=== PATIENT | male | born 1945 | race Caucasian/White ===

== ENCOUNTER 2022-12-14 13:00 | Emergency (ER) | payer MEDICARE, SELFPAY ==
[2022-12-14 13:01] VITALS: BP 120/56; PULSE 56; RESP 17; TEMP 36.6; O2SAT 97; BMI 29.7
--- NOTE | 2022-12-14 13:52 | HMH.EDGENADL ---
Discharge Plan Disposition Patient Disposition: Home, Self-Care Prescriptions Prescriptions: New doxycycline hyclate 100 mg capsule 100 mg PO BID 7 Days Qty: 14 0RF prednisone 50 mg tablet 50 mg PO DAILY 5 Days Qty: 5 0RF Rx Instructions: Please begin 1 day after ED visit albuterol sulfate 90 mcg/actuation HFA aerosol inhaler 4 inh inhalation Q4H PRN (Reason: shortness of breath or wheezing) Qty: 8.5 0RF Rx Instructions: 4 puffs every 4 hours for 48 hours then as needed for shortness of breath or wheezing following Referrals Follow up/Referrals: Gennaro Salamanca [Primary Care Provider] - See instructions Activity Restrictions/Add. Instructions Additional Instructions/Restrictions: Your symptoms today are consistent with a COPD exacerbation please take your steroid your inhaler and antibiotics as discussed. Please discontinue your Levaquin. Please return to the emergency department with any worsening symptoms and follow-up with primary care doctor within 1 week or as needed Clinical Impressions Clinical Impression: Acute exacerbation of chronic obstructive pulmonary disease Discharge ED Provider: Thelma Landon General Adult [facility] General Chief complaint: Upper Respiratory Infection Stated complaint: soa, weakness Time Seen by Provider: 12/14/22 13:52 Mode of Arrival: Ambulatory Limitations: No Limitations Description of Symptoms (Recalled from ER Triage Doc. by RN): pt to ED with an upper respiratory infection x 2 weeks that has not improved. pt reports lethargy, congestion and cough and has completed a zpack and been levaquin x 5 days. pt reports no relief and being more run down . pt denies any chest pain or SOB at this time but would like to rule out pneumonia History of Present Illness HPI narrative: Patient is a 77-year-old male with a known history of COPD presents with 2 weeks of worsening shortness of breath productive sputum cough generalized fatigue and wheezing. No history of heart failure no lower extremity edema no PND or orthopnea. Patient denies any history of DVT or PTE no unilateral leg swelling no recent immobilizations or hemoptysis. Patient has been on azithromycin recently transition to Levaquin has not been on any steroids has been using his breathing treatments at home with some improvement Related Data Previous Rx's Medication Instructions Recorded albuterol sulfate 90 mcg/actuation 4 inh inhalation Q4H PRN shortness 12/14/22 aerosol inhaler of breath or wheezing #8.5 grams doxycycline hyclate 100 mg capsule 100 mg PO BID 7 days #14 caps 12/14/22 prednisone 50 mg tablet 50 mg PO DAILY 5 days #5 tabs 12/14/22 Allergies Allergy/AdvReac Type Severity Reaction Status Date / Time No Known Allergies Allergy Verified 12/14/22 13:43 [facility] Disclaimer: The information contained in this section may have been updated after the patient was seen, as this information can be updated by other users. Social History Smoking Status: Never smoker alcohol intake: never current occupational status: other Travel in the last 8 weeks: None ROS Obtained: Yes All systems reviewed & no additional complaints except as documented Physical Exam General General appearance: alert Respiratory Respiratory exam: Present other (Diffuse end expiratory wheezing with poor air movement prolonged expiratory phase nonfocal in nature) Cardiovascular Cardiovascular exam: Present regular rate; Absent tachycardia Neurological Exam Neurological exam: Present alert Medical Decision Making Kavon Inquiry Pt receiving controlled substance: No Vital Signs: 12/14/22 13:01 12/14/22 15:00 Temperature 97.9 F Temperature Source Oral Pulse Rate 55 L Pulse Rate [Left Radial] 56 L Respiratory Rate 17 Blood Pressure 128/63 Blood Pressure [Right Arm] 120/56 L Blood Pressure Mean 102 Blood Pressure Mean [Right Arm] 77 Blood Pressure Source [Right Arm] Automatic Cuff
--- NOTE | 2022-12-14 13:53 | XR_ITS ---
FINAL REPORT CLINICAL HISTORY: cough and congestion FINDINGS: TWO-VIEW CHEST The heart size is normal. The mediastinum is normal. There are mild chronic changes at the bases. There is no pneumothorax. IMPRESSION: No acute cardiopulmonary process. Reviewed, Interpreted and Dictated by Wiliam Hilario MD Transcribed by Marysol Rod Authenticated and [facility]
[2022-12-14 14:08] LABS: Basophils # 0.1 K/mm3 (0-0.2); Basophils % 0.8 % (0.1-2.0); Eosinophils # 0.5 K/mm3 (0.0-0.4); Eosinophils % 5.8 % (0.1-12.0); Hematocrit 47.7 % (42.0-52.0); Hemoglobin 15.1 g/dL (14.1-18.0); Lymphocytes # 1.5 K/mm3 (0.7-4.5); Lymphocytes % 19.2 % (10-50); Mean Corpuscular HGB Conc 31.7 g/dL (31.8-35.4); Mean Corpuscular Hemoglobin 29.9 pg (27.0-31.2); Mean Corpuscular Volume 94.3 fl (80-94); Mean Platelet Volume 9.4 fl (7.4-10.4); Monocytes # 0.5 K/mm3 (0.1-1.0); Monocytes % 6.7 % (1.7-9.3); Neutrophils # 5.2 K/mm3 (1.8-7.8); Neutrophils % 67.6 % (37.0-80.0); Platelet Count 301 K/mm3 (142-424); Red Blood Count 5.06 M/mm3 (4.60-6.20); Red Cell Distribution Width 14.1 % (11.5-17.5); White Blood Count 7.7 K/mm3 (4.8-10.8)
[2022-12-14 14:09] LABS: Alanine Aminotransferase 29 U/L (12-78); Albumin Level 4.2 g/dl (3.5-5.0); Albumin/Globulin Ratio 1.4 (1.1-1.8); Alkaline Phosphatase 67 U/L (38-126); Anion Gap 12.2 mEq/L (5-15); Aspartate Amino Transferase 43 U/L (17-59); Bilirubin,Total 0.9 mg/dl (0.2-1.3); Blood Urea Nitrogen 21 mg/dl (9-20); Calcium 8.7 mg/dl (8.4-10.2); Carbon Dioxide 33 mmol/L (22.0-30.0); Chloride 99 mmol/L (98-107); Creatinine Clearance Estimated 39 mL/min (50-200); Estimated Glomerular Filt Rate 34 ml/min (>60); GFR (African American) 42 ML/MIN (>60); Glucose 94 mg/dl (74-100); Potassium 4.2 mmoL/L (3.5-5.1); Sodium 140 mmol/L (136-145); Total Protein,Serum 7.2 g/dl (6.3-8.2)
[2022-12-14 14:34] LABS: Troponin I < 0.01 ng/ml (0.00-0.034)
--- NOTE | 2022-12-14 14:36 | PC.NURSE ---
pt receiving breathing treatment at this time
[2022-12-14 15:00] VITALS: BP 128/63; PULSE 55; O2SAT 93
[2022-12-14 15:51] VITALS: BP 149/71; PULSE 56; RESP 17; TEMP 36.6; O2SAT 99
== END 2022-12-14 15:52 | disposition home or self-care (01) ==
PROVIDERS: Emergency Provider Student in an Organized Health Care Education/Training Program; PCP Family Medicine
DX: J44.1 Chronic obstructive pulmonary disease with (acute) exacerbation (principal); R06.02 Shortness of breath; R53.83 Other fatigue
CPT/HCPCS: 71046; 80053; 84484; 85025; 99284; 99285

== ENCOUNTER 2024-02-29 17:06 | Emergency (ER) | payer MEDICARE, SELFPAY ==
[2024-02-29 17:15] VITALS: BP 196/88; PULSE 55; O2SAT 97
[2024-02-29 17:23] VITALS: BP 196/88; PULSE 64; RESP 20; TEMP 36.6; O2SAT 100; BMI 28.1
--- NOTE | 2024-02-29 17:37 | ED_ITS ---
Discharge Plan Disposition Patient Disposition: Home, Self-Care Chief Complaint: Recheck/Abnormal Lab/Rx Prescriptions Prescriptions: No Action doxycycline hyclate 100 mg capsule 100 mg PO BID 7 Days Qty: 14 0RF prednisone 50 mg tablet 50 mg PO DAILY 5 Days Qty: 5 0RF Rx Instructions: Please begin 1 day after ED visit albuterol sulfate 90 mcg/actuation HFA aerosol inhaler 4 inh inhalation Q4H PRN (Reason: shortness of breath or wheezing) Qty: 8.5 0RF Rx Instructions: 4 puffs every 4 hours for 48 hours then as needed for shortness of breath or wheezing following Referrals Follow up/Referrals: Gennaro Salamanca [Primary Care Provider] - See instructions Autumn Bhat APRN [Staff Physician] - See instructions Jacoby Vega MD [Staff Physician] - See instructions Activity Restrictions/Add. Instructions Additional Instructions/Restrictions: Call your family doctor to establish care for this visit to the emergency department and schedule follow-up within 48 hours to ensure improvement. If you have any worsening of your condition or any other concerning signs or symptoms, return to the emergency department or your primary care doctor for further evaluation. Follow-up with Dr. Xie for colonoscopy and further management. Autumn Bhat is the wool hat forming machine tender here you can call and schedule appoint with him as well. Clinical Impressions Clinical Impression: Rectal bleed, Pain in rectum, Diarrhea Discharge ED Provider: Ra Ball General Adult HPI General Chief complaint: Recheck/Abnormal Lab/Rx Stated complaint: Rectal bleed X4-5 days Time Seen by Provider: 02/29/24 17:13 Mode of Arrival: Ambulatory Source of Information: Patient and Spouse Limitations: No Limitations Description of Symptoms (Recalled from ER Triage Doc. by RN): pt reports red rectal bleeding since 02/23. pt states its minimal bleeding that is evident on the toilet paper when he wipes. pt has a hx of hemmorhoids and colon cancer that was surgically removed. pt also reports his abd has been feeling different over the last 3 months. pt reports he has diarrhea, gas and cramps more than normal. pt reports his last cologaurd was last year and it was negative. History of Present Illness HPI narrative: Please note that above description of symptoms, in this electronic medical record under categorization of recalled from ER triage doctor by RN are reflective of an initial nursing assessment, however, is not reflective of my full history and physical exam that was personally taken and clarified. Consequentially, this preceding description of symptoms, which may include the patient's categorized chief complaint in the EMR, do not reflect my personal clinical impression, and the ultimate description of history of present illness and patient stated complaints should be deferred to this section of the note. Unless stated otherwise or congruent with this section of the note, additional signs, symptoms, or incongruence should be interpreted as inaccurate with my clinical impression. Related Data Previous Rx's Medication Instructions Recorded albuterol sulfate 90 mcg/actuation 4 inh inhalation Q4H PRN shortness 12/14/22 aerosol inhaler of breath or wheezing #8.5 grams doxycycline hyclate 100 mg capsule 100 mg PO BID 7 days #14 caps 12/14/22 prednisone 50 mg tablet 50 mg PO DAILY 5 days #5 tabs 12/14/22 Allergies Allergy/AdvReac Type Severity Reaction Status Date / Time No Known Allergies Allergy Verified 02/29/24 17:31 [facility] Disclaimer: The information contained in this section may have been updated after the patient was seen, as this information can be updated by other users. Social History (Updated 12/14/22 @ 15:25 by Thelma Landon MD) Smoking Status: Never smoker alcohol intake: never current occupational status: other Travel in the last 8 weeks: None ROS Obtained: Yes All systems reviewed & no additional complaints except as documented Physical Exam General General appearance: alert and in no apparent distress Head Head exam: atraumatic and normocephalic Eye Eye exam: Present normal appearance, PERRL and EOMI ENT ENT exam: Present mucous membranes moist Neck Neck exam: Present normal inspection, full ROM and trachea midline Respiratory Respiratory exam: Absent respiratory distress, wheezes, stridor, accessory muscle use or prolonged expiratory phase Cardiovascular Cardiovascular exam: Present regular rate and normal rhythm Abdominal Exam Abdominal exam: Present soft; Absent distention, tenderness, guarding, rebound or rigidity Extremities Exam Extremities exam: Absent edema Neurological Exam Neurological exam: Present alert, oriented X3, CN II-XII intact and normal gait; Absent motor sensory deficit Skin Skin exam: Present warm and dry; Absent diaphoresis or erythema Medical Decision Making Medical Records Medical records reviewed: Yes I reviewed the patient's medical records. Kavon Inquiry Pt receiving controlled substance: No Kavon was queried for this patient: No Vital Signs: 02/29/24 17:15 02/29/24 17:23 02/29/24 19:00 Temperature 97.8 F Temperature Source Oral Pulse Rate 55 L Pulse Rate [Left] 64 Respiratory Rate 20 Blood Pressure 196/88 H 196/88 H Blood Pressure [Right Arm] 196/88 H Blood Pressure Mean [Right Arm] 124 Blood Pressure Source [Right Arm] Automatic Cuff Blood Pressure Position [Right Arm] Sitting 02 Sat by Pulse Oximetry 97 100 Oxygen Delivery Method Room Air Lab Data Lab Results 02/29/24 17:30: WBC 8.6, RBC 4.76, Hgb 14.8, Hct 47.3, MCV 99.4 H, MCH 31.1, M CHC 31.3 L, RDW 15.3, Plt Count 229, MPV 8.8, Neut % (Auto) 72.7, Lymph % (Auto) 17.4, [place] % (Auto) 6.2, Eos % (Auto) 2.8, Baso % (Auto) 1.0, Neut # (Auto) 6.2, Lymph # (Auto) 1.5, [place] # (Auto) 0.5, Eos # (Auto) 0.2, Baso # (Auto) 0.1, PT 10.9, INR 1.01, APTT 26.1, Sodium 141, Potassium 4.2, Chloride 102, Carbon Dioxide 32 H, Anion Gap 11.2, BUN 25 H, Creatinine 1.80 H, Estimated Creat Clear 38, Estimated GFR 37 L, Est GFR ( Amer) 44 L, Glucose 133 H, Calcium 10.4 H, Total Bilirubin 0.9, AST 37, ALT 35, Alkaline Phosphatase 62, Total Protein 7.3, Albumin 4.2, Globulin 3.1, Albumin/Globulin Ratio 1.4 02/29/24 17:30 02/29/24 17:30 Orders (Tests/Meds): ED MEDICATIONS Discontinued Medications Generic Name Dose Route Start Last Admin Trade Name Freq PRN Reason Stop Dose Admin Lactated Ringer's 1,000 mls @ 999 mls/hr 02/29/24 18:17 02/29/24 19:08 Lactated Ringer's 1000 Ml Bag IV 02/29/24 19:17 999 mls/hr .Q1H1M ONE Administration Iopamidol 75 ml 02/29/24 18:59 02/29/24 19:00 Iopamidol-370 (76%);100ml Bottle IV 02/29/24 19:00 75 ml ONCE ONE Administration Sodium Chloride 10 ml 02/29/24 18:59 02/29/24 19:00 Sodium Chloride 0.9% 10ml Syr (Rad Only) IV 02/29/24 19:00 10 ml ONCE ONE Administration ORDERS Category Date Time Status CT abdomen pelvis w con Stat Cat Scan 02/29/24 17:56 Completed CBC w/Auto Diff [Complete Blood Count Auto Diff] Stat Lab 02/29/24 17:30 Completed CMP [Comprehensive Metabolic Panel] Stat Lab 02/29/24 17:30 Completed PT INR [Prothrombin Time INR] Stat Lab 02/29/24 17:30 Completed PTT [Activated Partial Thrombo Time] Stat Lab 02/29/24 17:30 Completed Medical Decision Narrative: 78-year-old male history of hypertension, hyperlipidemia, COPD not on home oxygen, hemorrhoids, colon cancer status postsurgical resection presenting with rectal bleeding. Patient states that he has had diarrhea on and off for couple months. Over the past 4 to 5 days, started having blood in his stool. Does not feel the toilet, not necessarily on his stool, is only present when he wipes. Some pain when having bowel movements. No fevers or chills, night sweats, unintended weight loss, decreased p.o. intake, vomiting, abdominal pain, or any other concerns. Does not take anticoagulation. History was obtained via conversation with patient and . On arrival, patient hemodynamically stable, alert, oriented x4, appropriate, GCS 15, moving all extremities spontaneously, pupils equal and reactive to light. Full physical exam performed and significant for very well-appearing male who is in no acute distress. His abdomen is soft, nondistended, nontender, no overlying skin changes. Patient hypertensive, nontachycardic, afebrile. Rectal exam tender, but no palpable hemorrhoids. Anal fissure present. Differential includes hemorrhoid, fissure, malignancy, AVM, diverticular bleed, proctitis, among others. Patient was given food bolus for symptomatic management and correction of underlying abnormalities. Workup independently interpreted and significant for stable hemoglobin normal chemistry other than UMBERTO on CKD with creatinine 1.8. LFTs within normal limits. CT of the abdomen pelvis independently interpreted and patient has simple cyst in his liver, but no intra-abdominal pathology or perirectal pathology. See radiology read for full review of final results. On reevaluation, patient resting comfortably in bed. Given patient presentation, workup, history, this most likely represents perianal fissure in the setting of frequent diarrhea. Because patient at baseline without signs or symptoms of clinical decompensation, deemed appropriate for discharge. Results were relayed to patient who voiced understanding and were agreeable to outpatient management and follow up. I discussed my clinical impression with patient and answered all questions. At this time, the evidence for any other entities in the differential is insufficient to warrant any further testing or ED observation. This was explained as well. Advisory was given that persistent or worsening symptoms require further evaluation. I confirmed the understanding of this discussion. Internist Medical Doctor Md disclaimer Much of this encounter note is an electronic medicaid plan compliance director spoken language to printed text. Electronic medicaid plan compliance director of the spoken language may permit errors. Although I have reviewed the note, some errors may still exist. Critical Care Critical Care Time Critical Care Time: No
[2024-02-29 17:45] LABS: Basophils # 0.1 K/mm3 (0-0.2); Eosinophils # 0.2 K/mm3 (0.0-0.4); Eosinophils % 2.8 % (0.1-12.0); Hematocrit 47.3 % (42.0-52.0); Hemoglobin 14.8 g/dL (14.1-18.0); Lymphocytes # 1.5 K/mm3 (0.7-4.5); Lymphocytes % 17.4 % (10-50); Mean Corpuscular HGB Conc 31.3 g/dL (31.8-35.4); Mean Corpuscular Hemoglobin 31.1 pg (27.0-31.2); Mean Corpuscular Volume 99.4 fl (80-94); Mean Platelet Volume 8.8 fl (7.4-10.4); Monocytes # 0.5 K/mm3 (0.1-1.0); Monocytes % 6.2 % (1.7-9.3); Neutrophils # 6.2 K/mm3 (1.8-7.8); Neutrophils % 72.7 % (37.0-80.0); Platelet Count 229 K/mm3 (142-424); Red Blood Count 4.76 M/mm3 (4.60-6.20); Red Cell Distribution Width 15.3 % (11.5-17.5); White Blood Count 8.6 K/mm3 (4.8-10.8)
[2024-02-29 17:52] LABS: Activated Partial Thrombo Time 26.1 seconds (22.8-30.6); INR 1.01 (0.9-1.1); Prothrombin Time 10.9 seconds (10.1-12.5)
--- NOTE | 2024-02-29 17:56 | CT_ITS ---
PROCEDURE INFORMATION: Exam: CT Abdomen And Pelvis With Contrast Exam date and time: 02/29/24 06:56 PM Age: 78 years old Clinical indication: Other: Rectal bleeding; Additional info: Scant rectal bleeding, history of colon CA TECHNIQUE: Imaging protocol: Computed tomography of the abdomen and pelvis with contrast. Radiation optimization: All CT scans at this facility use at least one of these dose optimization techniques: automated exposure control; mA and/or kV adjustment per patient size (includes targeted exams where dose is matched to clinical indication); or iterative reconstruction. Contrast material: ISOVUE; Contrast volume: 75 ml; Contrast route: IV; COMPARISON: CR XR CHEST 2V 12/14/22 01:53 PM FINDINGS: Tubes, catheters and devices: None noted. Lungs: Lung bases appear clear. Heart: No significant coronary calcifications. No cardiomegaly. No significant pericardial effusion. Liver: Normal. No mass. Gallbladder and bile ducts: Normal. No calcified stones. No ductal dilation. Pancreas: Normal. No ductal dilation. Spleen: Normal. No splenomegaly. Adrenal glands: Normal. No mass. Kidneys and ureters: Normal. No hydronephrosis. Stomach and bowel: Unremarkable. No obstruction. No mucosal thickening. Appendix: No evidence of appendicitis. Intraperitoneal space: Unremarkable. No free air. No significant fluid collection. Retroperitoneal space: No significant retroperitoneal inflammatory changes are noted. Vasculature: Unremarkable. No abdominal aortic aneurysm. Lymph nodes: Unremarkable. No enlarged lymph nodes. Urinary bladder: Unremarkable as visualized. Reproductive: Unremarkable as visualized. Bones/joints: Unremarkable. No acute fracture. Soft tissues: Anterior midline hernia contains omentum and transverse colon. No obstruction. IMPRESSION: 1. No acute findings. 2. Previous surgical changes in the colon.
[2024-02-29 18:09] LABS: Chloride 102 mmol/L (98-107); Sodium 141 mmol/L (136-145)
[2024-02-29 18:10] LABS: Potassium 4.2 mmoL/L (3.5-5.1)
[2024-02-29 18:12] LABS: Alanine Aminotransferase 35 U/L (12-78); Albumin Level 4.2 g/dl (3.5-5.0); Alkaline Phosphatase 62 U/L (38-126); Aspartate Amino Transferase 37 U/L (17-59); Bilirubin,Total 0.9 mg/dl (0.2-1.3); Blood Urea Nitrogen 25 mg/dl (9-20); Creatinine Clearance Estimated 38 mL/min (50-200); Estimated Glomerular Filt Rate 37 ml/min (>60); GFR (African American) 44 ML/MIN (>60)
[2024-02-29 18:13] LABS: Albumin/Globulin Ratio 1.4 (1.1-1.8); Anion Gap 11.2 mEq/L (5-15); Calcium 10.4 mg/dl (8.4-10.2); Carbon Dioxide 32 mmol/L (22.0-30.0); Globulin 3.1 g/dL (1.3-3.2); Glucose 133 mg/dl (74-100); Total Protein,Serum 7.3 g/dl (6.3-8.2)
[2024-02-29 19:00] VITALS: BP 196/88
[2024-02-29] MEDS: IOPAMIDOL-370 (76%);100ML BOTTLE 75 ML IV (19:00)
[2024-02-29] MEDS: SODIUM CHLORIDE 0.9% 10ML SYR (RAD ONLY) 10 ML IV (19:00)
[2024-02-29] MEDS: LACTATED RINGERS 1000ML 1,000 ML 999 ML IV (19:08)
--- NOTE | 2024-02-29 20:01 | PC.NURSE ---
I spoke with MALLORY to page the radiologist that read the pts CT. They will return the call when the radiologist is available.
--- NOTE | 2024-02-29 20:03 | PC.NURSE ---
I rounded on the pt. no new complaints at this time. I informed him and his that we are waiting on a return call from the radiologist.
[2024-02-29 20:49] VITALS: BP 164/92; PULSE 73; RESP 16; TEMP 36.6
== END 2024-02-29 20:50 | disposition home or self-care (01) ==
PROVIDERS: Emergency Provider Emergency Medicine; PCP Family Medicine
DX: K62.5 Hemorrhage of anus and rectum (principal); K62.89 Other specified diseases of anus and rectum; R19.7 Diarrhea, unspecified; I10 Essential (primary) hypertension; E78.5 Hyperlipidemia, unspecified; J44.9 Chronic obstructive pulmonary disease, unspecified; Z85.038 Personal history of other malignant neoplasm of large intestine; Z90.49 Acquired absence of other specified parts of digestive tract; K60.2 Anal fissure, unspecified
CPT/HCPCS: 74177; 80053; 85025; 85610; 85730; 96360; 99284; J7120; Q9967

== ENCOUNTER 2024-05-06 12:28 | Emergency (ER) | payer MEDICARE, SELFPAY ==
[2024-05-06] VITALS (8 sets, daily range): BP systolic 129–183; BP diastolic 79–94; PULSE 55–67; RESP 16–20; TEMP 36.6–36.7; O2SAT 96–98; BMI 28.1
--- NOTE | 2024-05-06 12:35 | ECG_ITS ---
APPROVED REPORT Exam: Resting ECG HR:66 bpm ECG Measurements Heart Rate 66 AXES QRSd 87 QRS 85 QT 376 T 82 QTc 389 Conclusion ATRIAL FIBRILLATION WITH ABERRANT CONDUCTION OR VENTRICULAR PREMATURE COMPLEXES ABNORMAL RHYTHM ECG Electronically signed by : NADINE FERNANDEZ, 05/07/2024 07:09:02
--- NOTE | 2024-05-06 12:46 | XR_ITS ---
FINAL REPORT CLINICAL HISTORY: SHORTNESS OF BREATH, CHEST PAIN COMPARISON: 12/14/2022 FINDINGS: TWO-VIEW CHEST The heart size is normal. The mediastinum is normal. There are worsening bibasilar opacities, may represent atelectasis or pneumonia. There is no pneumothorax. IMPRESSION: Worsening bibasilar atelectasis versus pneumonia. Reviewed, Interpreted and Dictated by Vivek Garnica III, MD Transcribed by Marysol Rod Authenticated and [facility]
[2024-05-06 12:53] LABS: Basophils % 0.6 % (0.1-2.0); Eosinophils # 0.3 K/mm3 (0.0-0.4); Eosinophils % 4.8 % (0.1-12.0); Hematocrit 42.6 % (42.0-52.0); Hemoglobin 13.5 g/dL (14.1-18.0); Lymphocytes # 1.1 K/mm3 (0.7-4.5); Lymphocytes % 17.1 % (10-50); Mean Corpuscular HGB Conc 31.6 g/dL (31.8-35.4); Mean Corpuscular Hemoglobin 31.5 pg (27.0-31.2); Mean Corpuscular Volume 99.4 fl (80-94); Mean Platelet Volume 9.4 fl (7.4-10.4); Monocytes # 0.4 K/mm3 (0.1-1.0); Monocytes % 6.4 % (1.7-9.3); Neutrophils # 4.7 K/mm3 (1.8-7.8); Neutrophils % 71.1 % (37.0-80.0); Platelet Count 249 K/mm3 (142-424); Red Blood Count 4.29 M/mm3 (4.60-6.20); White Blood Count 6.7 K/mm3 (4.8-10.8)
[2024-05-06 12:54] LABS: Albumin Level 3.6 g/dl (3.5-5.0); Chloride 103 mmol/L (98-107); Potassium 3.9 mmoL/L (3.5-5.1); Sodium 137 mmol/L (136-145)
--- NOTE | 2024-05-06 12:54 | CT_ITS ---
FINAL REPORT CLINICAL HISTORY: abd pain, distension, hx ca COMPARISON: 02/29/2024 FINDINGS: CT OF THE ABDOMEN AND PELVIS WITH CONTRAST Axial CT images of the abdomen and pelvis were obtained after the administration of IV contrast. Coronal and sagittal reformatted images were also obtained and reviewed.This study was performed with techniques to keep radiation doses as low as reasonably achievable (ALARA). Individualized dose reduction techniques using automated exposure control or adjustment of mA and/or kV according to the patient's size were employed. Abdomen: Small to moderate size bilateral pleural effusions are present. Bibasilar atelectasis is noted in the lower lobes.. The heart is normal in size. Multiple low-attenuation foci are noted in the liver, favor cysts, however continued follow-up is recommended. The spleen is unremarkable. There are bilateral adrenal nodules noted, stable when compared to the prior CT of February. Favor adenomas, but continued follow-up is recommended. The pancreas has an unremarkable appearance. The kidneys are normal, without evidence of mass or hydronephrosis. There are 3 supraumbilical abdominal wall hernias present, containing fat. One of these hernias contains a nonobstructing loop of transverse colon. The aorta is normal in caliber. There is no free fluid or adenopathy. No mass or abnormal fluid collection is seen. Pelvis: A presumed right colectomy has been performed. The appendix is not well-visualized. The urinary bladder wall is thickened, likely inflammatory. There is no evidence of mass or adenopathy. There is no evidence of bowel obstruction. IMPRESSION: Small to moderate bilateral pleural effusions are present. Multiple low-attenuation foci are present in the liver, favor cysts but 6-month follow-up CT with contrast is suggested for further evaluation. Bilateral adrenal nodules are present, stable since February. Once again favor CT with contrast in 6 months for further evaluation. Three supraumbilical abdominal wall hernias are present containing fat, 1 of which contains a nonobstructed loop of transverse colon. Mild bladder wall thickening is present, likely inflammatory. Reviewed, Interpreted and Dictated by Vivek Garnica III, MD Transcribed by Abimbola Santana Authenticated and [facility]
[2024-05-06 12:56] LABS: Blood Urea Nitrogen 17 mg/dl (9-20); Creatinine Clearance Estimated 34 mL/min (50-200); Estimated Glomerular Filt Rate 32 ml/min (>60); GFR (African American) 39 ML/MIN (>60)
--- NOTE | 2024-05-06 12:56 | [facility].EDCP ---
Discharge Plan Disposition Patient Disposition: Home, Self-Care Condition: Good Prescriptions Prescriptions: New furosemide 40 mg tablet 40 mg PO DAILY Qty: 30 0RF Trelegy Ellipta 100-62.5-25 mcg blister with device 1 inh inhalation DAILY Qty: 60 0RF albuterol sulfate 90 mcg/actuation HFA aerosol inhaler 2 inh inhalation Q4H PRN (Reason: shortness of breath or wheezing) Qty: 8.5 0RF No Action doxycycline hyclate 100 mg capsule 100 mg PO BID 7 Days Qty: 14 0RF prednisone 50 mg tablet 50 mg PO DAILY 5 Days Qty: 5 0RF Rx Instructions: Please begin 1 day after ED visit albuterol sulfate 90 mcg/actuation HFA aerosol inhaler 4 inh inhalation Q4H PRN (Reason: shortness of breath or wheezing) Qty: 8.5 0RF Rx Instructions: 4 puffs every 4 hours for 48 hours then as needed for shortness of breath or wheezing following Referrals Follow up/Referrals: Gennaro Salamanca [Primary Care Provider] - See instructions Manuel Carmen MD [Staff Physician] - See instructions Sivan Thacker MD [Physician] - See instructions Jessee Clifton MD [Staff Physician] - See instructions Activity Restrictions/Add. Instructions Additional Instructions/Restrictions: You were evaluated in the emergency department today. You have fluid buildup around your heart as well as on your lungs. For this, we are advising that you take furosemide 40 mg daily. Please make sure that you take that as prescribed. Make sure that you are not doubling up with your prescription that is at home. I also refilled your inhalers for you since you said that you are almost out of them. It is very important that you follow-up closely with cardiology for evaluation and management of this. I also recommend close follow-up with pulmonology given your chronic lung issues. They can help further manage your inhalers. You have incidental findings on your CT scan, which I do not feel are currently causing you any issues and I recommend outpatient follow-up for this. Please see below. We are providing you with information for pulmonology and cardiology. Please call their offices to schedule appointments in the morning. Let them know that you were seen in the ER. I recommend follow-up in the next 3 to 5 days. return to the emergency department right away for new or worsening symptoms. Small to moderate bilateral pleural effusions are present. Multiple low-attenuation foci are present in the liver, favor cysts but 6-month follow-up CT with contrast is suggested for further evaluation. Bilateral adrenal nodules are present, stable since February. Once again favor CT with contrast in 6 months for further evaluation. Three supraumbilical abdominal wall hernias are present containing fat, 1 of which contains a nonobstructed loop of transverse colon. Clinical Impressions Clinical Impression: CHF (congestive heart failure), Pericardial effusion, Pleural effusion, Liver lesion, Adrenal nodule, Abdominal hernia Instructions Patient Instructions: Heart Failure, DI for Shortness of Breath, DI for Pleural Effusion Print Language Print Language: Citizen Of [place] Discharge ED Provider: Heydi Powell HPI <Tracy Black MD - Last Filed: 05/06/24 15:26> General Chief Complaint: Shortness of Breath/Dyspnea Stated Complaint: soa Time Seen by Provider: 05/06/24 12:42 Mode of Arrival: Ambulatory Source of Information: Patient and Spouse Limitations: No Limitations Description of Symptoms (Recalled from ER Triage Doc. by RN): PT REPORTS INCREASED SHORTNESS OF BREATH THAT BECAME WORSE LAST NIGHT. REPORTS DIFFUSE CHEST PAIN AND NON-PRODUCTIVE COUGH. REPORTS INCREASED SWELLING OF BLE History of Present Illness HPI narrative: 79-year-old male presents to the ER for complaints of shortness of breath worse with exertion. Patient reports intermittent diffuse chest pain, nonproductive cough. He also has swelling in the bilateral lower extremities. He states he has a fluid pill which he does not usually take because he feels like the excessive urination causes him to have burning. Patient does report a history of cancer with previous abdominal surgeries. He states that he has had abdominal swelling and discomfort in the belly secondary to swelling. He is not having nausea, vomiting, or diarrhea. Patient and his report that he was on an antibiotic after having a cold. Reportedly it was a 20-day course of Levaquin but patient stopped taking it after 10 days. He stated he started to get worse again restarted the antibiotic which he recently completed. Related Data Previous Rx's ?Medication ?Instructions ?Recorded albuterol sulfate 90 mcg/actuation 4 inh inhalation Q4H PRN shortness 12/14/22 aerosol inhaler of breath or wheezing #8.5 grams doxycycline hyclate 100 mg capsule 100 mg PO BID 7 days #14 caps 12/14/22 prednisone 50 mg tablet 50 mg PO DAILY 5 days #5 tabs 12/14/22 albuterol sulfate 90 mcg/actuation 2 inh inhalation Q4H PRN shortness 05/06/24 aerosol inhaler of breath or wheezing #8.5 grams fluticasone fur. 100 mcg-umeclid 1 inh inhalation DAILY #60 ea 05/06/24 62.5 mcg-vilant 25 mcg inhalat.powder (Trelegy Ellipta) furosemide 40 mg tablet 40 mg PO DAILY #30 tabs 05/06/24 Allergies Allergy/AdvReac Type Severity Reaction Status Date / Time No Known Allergies Allergy Verified 02/29/24 17:31 PFSH <Tracy Black MD - Last Filed: 05/06/24 15:26> [facility] Disclaimer: The information contained in this section may have been updated after the patient was seen, as this information can be updated by other users. Social History (Updated 12/14/22 @ 15:25 by Thelma Landon MD) Smoking Status: Never smoker alcohol intake: never current occupational status: other Travel in the last 8 weeks: None <Tracy Black MD - Last Filed: 05/06/24 15:26> ROS Obtained: Yes All systems reviewed & no additional complaints except as documented Positive ROS per HPI Physical Exam <Tracy Black MD - Last Filed: 05/06/24 15:26> General General appearance: alert and in no apparent distress Head Head exam: atraumatic and normocephalic Eye Eye exam: Present PERRL and EOMI ENT ENT exam: Present mucous membranes moist Neck Neck exam: Present normal inspection and full ROM Chest Chest inspection: Present symmetric chest wall rise Respiratory Respiratory exam: Present normal lung sounds bilaterally; Absent respiratory distress, wheezes or stridor Cardiovascular Cardiovascular exam: Present normal rhythm and bradycardia Abdominal Exam Abdominal exam: Present soft, distention and tenderness (Mild diffuse); Absent guarding, rebound or rigidity Extremities Exam Extremities exam: Present full ROM and edema (2+ bilaterally) Neurological Exam Neurological exam: Present alert and oriented X3; Absent motor sensory deficit Psychiatric Psychiatric exam: Present normal affect and normal mood Skin Skin exam: Present warm and dry HEART Score <Tracy Black MD - Last Filed: 05/06/24 15:26> HEART Score HEART Score assessment performed?: Yes History (anamnesis): Slightly suspicious ECG: Non-specific disturbance Age: >65 years Risk factors: 1-2 risk factors Troponin: </= normal limit HEART Score: 4 <Heydi Powell DO - Last Filed: 05/06/24 16:55> HEART Score HEART Score: 4 Critical Care <Tracy Black MD - Last Filed: 05/06/24 15:26> Critical Care Time Critical Care Time: No Medical Decision Making <Tracy Black MD - Last Filed: 05/06/24 15:26> Medical Records Medical records reviewed: Yes I reviewed the patient's medical records. MR Comment: Patient has previously been seen in our ER for COPD exacerbation and diarrhea. Previous labs were reviewed demonstrating kidney dysfunction with creatinine 1.8, 1.9 previously. Kavon Inquiry Pt receiving controlled substance: No Vital Signs Vital Signs: 05/06/24 12:29 05/06/24 13:23 05/06/24 13:31 Temperature 97.8 F Temperature Source Oral Pulse Rate 64 62 Pulse Rate [Apical] 58 L Respiratory Rate 20 17 20 Blood Pressure 166/93 H 147/83 H Blood Pressure [Right Arm] 159/90 H Blood Pressure Mean 125 Blood Pressure Mean [Right Arm] 113 Blood Pressure Source [Right Arm] Automatic Cuff Blood Pressure Position [Right Arm] Sitting 02 Sat by Pulse Oximetry 98 98 98 Oxygen Delivery Method Room Air Room Air 05/06/24 14:30 05/06/24 15:01 05/06/24 15:30 Temperature Temperature Source Pulse Rate 55 L 62 67 Pulse Rate [Apical] Respiratory Rate 18 19 18 Blood Pressure 129/84 150/79 H 161/94 H Blood Pressure [Right Arm] Blood Pressure Mean 115 102 116 Blood Pressure Mean [Right Arm] Blood Pressure Source [Right Arm] Blood Pressure Position [Right Arm] 02 Sat by Pulse Oximetry 97 96 98 Oxygen Delivery Method 05/06/24 16:23 Temperature Temperature Source Pulse Rate 60 Pulse Rate [Apical] Respiratory Rate 16 Blood Pressure 183/83 H Blood Pressure [Right Arm] Blood Pressure Mean 150 Blood Pressure Mean [Right Arm] Blood Pressure Source [Right Arm] Blood Pressure Position [Right Arm] 02 Sat by Pulse Oximetry 98 Oxygen Delivery Method Lab Data Labs: Lab Results 05/06/24 12:36: WBC 6.7, RBC 4.29 L, Hgb 13.5 L, Hct 42.6, MCV 99.4 H, MCH 31.5 H, MCHC 31.6 L, RDW 15.0, Plt Count 249, MPV 9.4, Neut % (Auto) 71.1, Lymph % (Auto) 17.1, Humphreys % (Auto) 6.4, Eos % (Auto) 4.8, Baso % (Auto) 0.6, Neut # (Auto) 4.7, Lymph # (Auto) 1.1, Humphreys # (Auto) 0.4, Eos # (Auto) 0.3, Baso # (Auto) 0.0, PT 12.0, INR 1.08, Sodium 137, Potassium 3.9, Chloride 103, Carbon Dioxide 29, Anion Gap 8.9, BUN 17, Creatinine 2.00 H, Estimated Creat Clear 34, Estimated GFR 32 L, Est GFR ( Amer) 39 L, Glucose 163 H, Calcium 8.8, Total Bilirubin 1.1, AST 30, ALT 36, Alkaline Phosphatase 56, Troponin I 0.02, NT-Pro-B Natriuret Pep 3400 H, Total Protein 6.2 L, Albumin 3.6, Globulin 2.6, Albumin/Globulin Ratio 1.4 05/06/24 15:30: Troponin I 0.01 05/06/24 12:36 05/06/24 12:36 Response Orders (Tests/Meds): ED MEDICATIONS Generic Name Dose Route Start Last Admin Trade Name Freq PRN Reason Stop Dose Admin Sodium Chloride 10 ml 05/06/24 12:46 Sodium Chloride 0.9% 10ml Flush Syringe IV 06/05/24 12:45 NEEDED PRN Maintain IV Site Discontinued Medications Generic Name Dose Route Start Last Admin Trade Name Freq PRN Reason Stop Dose Admin Iopamidol 75 ml 05/06/24 13:21 05/06/24 13:22 Iopamidol-370 (76%);100ml Bottle IV 05/06/24 13:22 75 ml ONCE ONE Administration Sodium Chloride 10 ml 05/06/24 13:21 05/06/24 13:22 Sodium Chloride 0.9% 10ml Syr (Rad Only) IV 05/06/24 13:22 10 ml ONCE ONE Administration ORDERS Category Date Time Status CT abdomen pelvis w con Stat Cat Scan 05/06/24 12:[address] chest w con Stat Cat Scan 05/06/24 12:57 Completed XR chest 2V Stat Exams 05/06/24 12:46 Completed Complete Blood Count Auto Diff Stat Lab 05/06/24 12:36 Completed Comprehensive Metabolic Panel Stat Lab 05/06/24 12:36 Completed NT Pro Brain Natriuretic Pep. Stat Lab 05/06/24 12:36 Completed PT INR [Prothrombin Time INR] Stat Lab 05/06/24 12:36 Completed Troponin I Q3H Lab 05/06/24 15:30 Completed Troponin I Q3H Lab 05/06/24 19:00 Ordered Troponin I Stat Lab 05/06/24 12:36 Completed MDM Narrative Medical Decision Narrative: In summary, this 79-year-old male presents to the emergency department today with shortness of breath, intermittent chest pains, bilateral lower extremity swelling. On initial evaluation patient is hemodynamically stable though he is mildly bradycardic, afebrile, +2 bilateral lower extremity pitting edema, reassuring pulmonary exam, abdomen is distended but soft without rigidity, mild diffuse tenderness without rebound or guarding, nonacute abdomen. Differential diagnosis includes but is not limited to ACS, malignancy, pulmonary edema, electrolyte abnormality, medication noncompliance, ascites, liver dysfunction, kidney dysfunction. Based on these concerns, I ordered cardiac workup, CT imaging, serum labs. ECG personally interpreted demonstrates atrial fibrillation, rate 66, normal axis, normal QTc. Labs personally reviewed demonstrate no leukocytosis, mild anemia with hemoglobin 13.5, slightly decreased from previous, normal platelets, CMP notable for elevated creatinine at 2.0, though this is not significantly different from previous, BNP is elevated at 3400 consistent with findings of fluid overload on exam, initial troponin 0.02, repeat troponin pending. X-ray personally interpreted does not demonstrate acute lobar infiltrate or pneumothorax. See radiology read for final interpretation CT chest personally interpreted demonstrates pleural effusion bilaterally, no findings of pneumonia,, see radiology read for final interpretation. CT abdomen pelvis pending at the time of physician handoff Patient handed off to Dr. Powell for continued management and disposition pending repeat troponin, CT abdomen/pelvis results. <Heydi Powell, DO - Last Filed: 05/06/24 16:55> Vital Signs Vital Signs: 05/06/24 12:29 05/06/24 13:23 05/06/24 13:31 Temperature 97.8 F Temperature Source Oral Pulse Rate 64 62 Pulse Rate [Apical] 58 L Respiratory Rate 20 17 20 Blood Pressure 166/93 H 147/83 H Blood Pressure [Right Arm] 159/90 H Blood Pressure Mean 125 Blood Pressure Mean [Right Arm] 113 Blood Pressure Source [Right Arm] Automatic Cuff Blood Pressure Position [Right Arm] Sitting 02 Sat by Pulse Oximetry 98 98 98 Oxygen Delivery Method Room Air Room Air 05/06/24 14:30 05/06/24 15:01 05/06/24 15:30 Temperature Temperature Source Pulse Rate 55 L 62 67 Pulse Rate [Apical] Respiratory Rate 18 19 18 Blood Pressure 129/84 150/79 H 161/94 H Blood Pressure [Right Arm] Blood Pressure Mean 115 102 116 Blood Pressure Mean [Right Arm] Blood Pressure Source [Right Arm] Blood Pressure Position [Right Arm] 02 Sat by Pulse Oximetry 97 96 98 Oxygen Delivery Method 05/06/24 16:23 Temperature Temperature Source Pulse Rate 60 Pulse Rate [Apical] Respiratory Rate 16 Blood Pressure 183/83 H Blood Pressure [Right Arm] Blood Pressure Mean 150 Blood Pressure Mean [Right Arm] Blood Pressure Source [Right Arm] Blood Pressure Position [Right Arm] 02 Sat by Pulse Oximetry 98 Oxygen Delivery Method Lab Data Labs: Lab Results 05/06/24 12:36: WBC 6.7, RBC 4.29 L, Hgb 13.5 L, Hct 42.6, MCV 99.4 H, MCH 31.5 H, MCHC 31.6 L, RDW 15.0, Plt Count 249, MPV 9.4, Neut % (Auto) 71.1, Lymph % (Auto) 17.1, Humphreys % (Auto) 6.4, Eos % (Auto) 4.8, Baso % (Auto) 0.6, Neut # (Auto) 4.7, Lymph # (Auto) 1.1, Humphreys # (Auto) 0.4, Eos # (Auto) 0.3, Baso # (Auto) 0.0, PT 12.0, INR 1.08, Sodium 137, Potassium 3.9, Chloride 103, Carbon Dioxide 29, Anion Gap 8.9, BUN 17, Creatinine 2.00 H, Estimated Creat Clear 34, Estimated GFR 32 L, Est GFR ( Amer) 39 L, Glucose 163 H, Calcium 8.8, Total Bilirubin 1.1, AST 30, ALT 36, Alkaline Phosphatase 56, Troponin I 0.02, NT-Pro-B Natriuret Pep 3400 H, Total Protein 6.2 L, Albumin 3.6, Globulin 2.6, Albumin/Globulin Ratio 1.4 05/06/24 15:30: Troponin I 0.01 Response Orders (Tests/Meds): ED MEDICATIONS Generic Name Dose Route Start Last Admin Trade Name Freq PRN Reason Stop Dose Admin Sodium Chloride 10 ml 05/06/24 12:46 Sodium Chloride 0.9% 10ml Flush Syringe IV 06/05/24 12:45 NEEDED PRN Maintain IV Site Discontinued Medications Generic Name Dose Route Start Last Admin Trade Name Freq PRN Reason Stop Dose Admin Iopamidol 75 ml 05/06/24 13:21 05/06/24 13:22 Iopamidol-370 (76%);100ml Bottle IV 05/06/24 13:22 75 ml ONCE ONE Administration Sodium Chloride 10 ml 05/06/24 13:21 05/06/24 13:22 Sodium Chloride 0.9% 10ml Syr (Rad Only) IV 05/06/24 13:22 10 ml ONCE ONE Administration ORDERS Category Date Time Status CT abdomen pelvis w con Stat Cat Scan 05/06/24 12:[address] chest w con Stat Cat Scan 05/06/24 12:57 Completed XR chest 2V Stat Exams 05/06/24 12:46 Completed Complete Blood Count Auto Diff Stat Lab 05/06/24 12:36 Completed Comprehensive Metabolic Panel Stat Lab 05/06/24 12:36 Completed NT Pro Brain Natriuretic Pep. Stat Lab 05/06/24 12:36 Completed PT INR [Prothrombin Time INR] Stat Lab 05/06/24 12:36 Completed Troponin I Q3H Lab 05/06/24 15:30 Completed Troponin I Q3H Lab 05/06/24 19:00 Ordered Troponin I Stat Lab 05/06/24 12:36 Completed MDM Narrative Medical Decision Narrative: In summary, this 79-year-old male presents to the emergency department today with shortness of breath, intermittent chest pains, bilateral lower extremity swelling. On initial evaluation patient is hemodynamically stable though he is mildly bradycardic, afebrile, +2 bilateral lower extremity pitting edema, reassuring pulmonary exam, abdomen is distended but soft without rigidity, mild diffuse tenderness without rebound or guarding, nonacute abdomen. Differential diagnosis includes but is not limited to ACS, malignancy, pulmonary edema, electrolyte abnormality, medication noncompliance, ascites, liver dysfunction, kidney dysfunction. Based on these concerns, I ordered cardiac workup, CT imaging, serum labs. ECG personally interpreted demonstrates atrial fibrillation, rate 66, normal axis, normal QTc. Labs personally reviewed demonstrate no leukocytosis, mild anemia with hemoglobin 13.5, slightly decreased from previous, normal platelets, CMP notable for elevated creatinine at 2.0, though this is not significantly different from previous, BNP is elevated at 3400 consistent with findings of fluid overload on exam, initial troponin 0.02, repeat troponin pending. X-ray personally interpreted does not demonstrate acute lobar infiltrate or pneumothorax. See radiology read for final interpretation CT chest personally interpreted demonstrates pleural effusion bilaterally, no findings of pneumonia,, see radiology read for final interpretation. CT abdomen pelvis pending at the time of physician handoff Patient handed off to Dr. Powell for continued management and disposition pending repeat troponin, CT abdomen/pelvis results. Andre DO: I assumed care of the patient at 1500. He is ambulatory without desaturation. Vitals are reassuring on cardiac telemetry. CT scans demonstrated bilateral pleural effusions, small pericardial effusion, liver lesions that they favor benign cysts, and stable adrenal nodules. I did notify family and patient of this, and he stated he was already aware. He we will follow-up outpatient for further management. I feel that his symptoms are likely related to volume overload in the setting of diuretic noncompliance. He describes symptoms of CHF and labs and imaging are consistent with this. Ultimately, I do not feel he requires admission at this time, but I do feel he benefit from very close follow-up with pulmonology and cardiology which I advised patient and family of. I did provide them information to help arrange follow-up. I provided them with a prescription for Lasix, though they stated that they think they may have some at home. They asked for refills of his inhalers, as he is almost out. I provided them with these as well. second troponin is stable. Again, I do not feel that he requires admission at this time, though it was considered. He was discharged with strict return precautions, instructions for close outpatient follow-up, and prescriptions for Lasix and refills of his inhaler. Patient was discharged after all questions were answered
[2024-05-06 12:57] LABS: Alanine Aminotransferase 36 U/L (12-78); Albumin/Globulin Ratio 1.4 (1.1-1.8); Alkaline Phosphatase 56 U/L (38-126); Anion Gap 8.9 mEq/L (5-15); Aspartate Amino Transferase 30 U/L (17-59); Bilirubin,Total 1.1 mg/dl (0.2-1.3); Calcium 8.8 mg/dl (8.4-10.2); Carbon Dioxide 29 mmol/L (22.0-30.0); Globulin 2.6 g/dL (1.3-3.2); Glucose 163 mg/dl (74-100); Total Protein,Serum 6.2 g/dl (6.3-8.2)
--- NOTE | 2024-05-06 12:57 | CT_ITS ---
FINAL REPORT CLINICAL HISTORY: soa hx ca years ago COMPARISON: None FINDINGS: Axial CT images of the chest were obtained with contrast. Coronal and sagittal reformatted images were also obtained. This study was performed with techniques to keep radiation doses as low as reasonably achievable, (ALARA). Individualized dose reduction techniques using automated exposure control or adjustment of mA and/or KV according to the patient's size were employed. There are multiple borderline in size and mildly enlarged mediastinal nodes present. An AP window node measures up to 18 mm in diameter, and a right subcarinal node measures up to 19 mm in diameter. Multiple smaller nodes are identified. No axillary mass or adenopathy is identified. Mild changes of emphysema are present as well as mild scarring. There is mild bilateral lower lobe atelectasis present as well. Small to moderate bilateral pleural effusions are noted. A small pericardial effusion is present as well. On lung window images, no pulmonary mass or dominant pulmonary nodule is identified. No localized pulmonary inflammatory process is identified. Limited images of the upper abdomen reveal 4 low-attenuation masses in the liver, the largest in the left dome measuring 14 mm in diameter, favor cysts but cannot be accurately evaluated secondary to the timing of contrast. Small adrenal nodules are noted bilaterally, nonspecific but favor adenomas. IMPRESSION: Multiple borderline and mildly enlarged lymph nodes are present in the mediastinum as described above. Small to moderate bilateral pleural effusions are present, along with a small pericardial effusion. 4 low-attenuation masses are present in the liver, the largest in the left dome measuring 14 mm in size. Favor cysts, but these cannot be accurately evaluated secondary to timing of the contrast bolus. Recommend follow-up CT with contrast. Small adrenal nodules are present, nonspecific, favor adenomas but once again recommend follow-up. Reviewed, Interpreted and Dictated by Vivek Garnica III, MD Transcribed by Abimbola Santana Authenticated and [facility]
[2024-05-06 13:05] LABS: INR 1.08 (0.9-1.1)
[2024-05-06 13:06] LABS: NT Pro Brain Natriuretic Pep. 3400 pg/mL (0-450)
[2024-05-06 13:09] LABS: Troponin I 0.02 ng/ml (0.00-0.034)
--- NOTE | 2024-05-06 13:10 | PC.NURSE ---
pt to ct
--- NOTE | 2024-05-06 13:20 | PC.NURSE ---
PT RETURNED FROM CT
[2024-05-06] MEDS: IOPAMIDOL-370 (76%);100ML BOTTLE 75 ML IV (13:22)
[2024-05-06] MEDS: SODIUM CHLORIDE 0.9% 10ML SYR (RAD ONLY) 10 ML IV (13:22)
--- NOTE | 2024-05-06 15:58 | PC.NURSE ---
O2 SAT WHILE AMBULATING 94% OR GREATER
[2024-05-06 16:07] LABS: Troponin I 0.01 ng/ml (0.00-0.034)
== END 2024-05-06 17:12 | disposition home or self-care (01) ==
PROVIDERS: Emergency Medicine; Emergency Provider Emergency Medicine; PCP Family Medicine
DX: I31.39 Other pericardial effusion (noninflammatory) (principal); J90 Pleural effusion, not elsewhere classified; I11.0 Hypertensive heart disease with heart failure; I50.9 Heart failure, unspecified; K46.9 Unspecified abdominal hernia without obstruction or gangrene; E27.9 Disorder of adrenal gland, unspecified; K76.9 Liver disease, unspecified; J44.9 Chronic obstructive pulmonary disease, unspecified
CPT/HCPCS: 71046; 71260; 74177; 80053; 83880; 84484; 85025; 85610; 93005; 99285; Q9967

== ENCOUNTER 2024-05-11 10:52 | Outpatient (CLI) | payer MEDICARE, SELFPAY ==
[2024-05-11 11:31] LABS: Basophils # 0.1 K/mm3 (0-0.2); Basophils % 0.7 % (0.1-2.0); Eosinophils # 0.3 K/mm3 (0.0-0.4); Eosinophils % 2.8 % (0.1-12.0); Hematocrit 45.4 % (42.0-52.0); Hemoglobin 14.7 g/dL (14.1-18.0); Lymphocytes # 1.3 K/mm3 (0.7-4.5); Lymphocytes % 14.1 % (10-50); Mean Corpuscular HGB Conc 32.3 g/dL (31.8-35.4); Mean Corpuscular Hemoglobin 31.9 pg (27.0-31.2); Mean Corpuscular Volume 98.6 fl (80-94); Mean Platelet Volume 9.3 fl (7.4-10.4); Monocytes # 0.6 K/mm3 (0.1-1.0); Monocytes % 6.9 % (1.7-9.3); Neutrophils # 6.8 K/mm3 (1.8-7.8); Neutrophils % 75.6 % (37.0-80.0); Platelet Count 276 K/mm3 (142-424); Red Cell Distribution Width 15.2 % (11.5-17.5)
[2024-05-11 12:01] LABS: Alanine Aminotransferase 32 U/L (12-78); Albumin Level 3.5 g/dl (3.5-5.0); Alkaline Phosphatase 58 U/L (38-126); Anion Gap 9.9 mEq/L (5-15); Aspartate Amino Transferase 32 U/L (17-59); Bilirubin,Indirect 1.3 mg/dL (0.0-0.9); Bilirubin,Total 1.3 mg/dl (0.2-1.3); Bilirubin,Unconjugated 1.5 mg/dL (0.0-1.1); Blood Urea Nitrogen 23 mg/dl (9-20); Calcium 9.4 mg/dl (8.4-10.2); Carbon Dioxide 32 mmol/L (22.0-30.0); Chloride 99 mmol/L (98-107); Chol/HDL Ratio 4.4 (1-3.5); Cholesterol 123 mg/dl (140-200); Estimated Glomerular Filt Rate 34 ml/min (>60); GFR (African American) 41 ML/MIN (>60); Glucose 130 mg/dl (74-100); HDL Cholesterol 28 mg/dl (40-60); Magnesium 1.4 mg/dl (1.6-2.3); Potassium 3.9 mmoL/L (3.5-5.1); Sodium 137 mmol/L (136-145); Total Protein,Serum 6.1 g/dl (6.3-8.2); Triglycerides 176 mg/dl (30-150); VLDL Cholesterol 35 mg/dL (0-40)
[2024-05-11 12:16] LABS: Free T4 (Free Thyroxine) 1.42 ng/dl (0.78-2.19)
[2024-05-11 12:30] LABS: Thyroid Stimulating Hormone 3.43 uIU/mL (0.465-4.68)
== END 2024-05-11 23:59 | disposition home or self-care (01) ==
LOC: LAB 10:55
PROVIDERS: PCP Nurse Practitioner; Visit Provider Nurse Practitioner
DX: I50.9 Heart failure, unspecified (principal); I31.39 Other pericardial effusion (noninflammatory); J90 Pleural effusion, not elsewhere classified; K76.9 Liver disease, unspecified; E27.9 Disorder of adrenal gland, unspecified; I48.91 Unspecified atrial fibrillation; J44.9 Chronic obstructive pulmonary disease, unspecified; R06.00 Dyspnea, unspecified; I20.89 Other forms of angina pectoris
CPT/HCPCS: 36415; 80048; 80061; 80076; 83735; 84439; 84443; 85025

== ENCOUNTER 2024-05-18 10:56 | Outpatient (CLI) | payer MEDICARE, SELFPAY ==
--- NOTE | 2024-05-18 | CA_ITS ---
APPROVED REPORT Exam: Pharmacologic Technologist: Gabriella Russell Ht: 5 ft 7 in Wt: 182 lbs BSA: 1.94 m2 HR: 62 bpm BP: 136/92 mmHg Indications: Angina, Dyspnea, Atrial Fibrillation, CHG, Pericardial Effusion Medical History Medications: Levothyroxine,,,,, Metoprolol,,,,, HCTZ,,,,, Duoneb,,,,, Albuterol,,,,, SpirOnolactone,,,,, Apixaban,,,,, Testosterone Cypionate,,,,, Trelegy Ellipta,,,,, Furosemide,,,,, Alfuzosin ER,,,,, Stress Test Details Test: LEXISCAN HR Resting HR: 55 bpm Max Heart Rate (APMHR): 140 bpm Max HR Achieved: 89 bpm Target HR (85% APMHR): 119 bpm % of APMHR: 64 Recovery HR: 77 bpm BP Resting BP: 136.0/92.0 mmHg Max BP: 136.0/92.0 mmHg Recovery BP: 124.0/56.0 mmHg ECG Resting ECG: Atrial fibrillation Stress ECG: No significant ST changes Arrhythmia: PVCs Clinical Exercise duration: 04:01 min Highest Stage Achieved: Stress ECG Conclusion Symptoms: Shortness of breath Arrhythmias/Ectopy: Occasional PVCs ST-T Changes: None. Conclusion: Unremarkable Lexiscan stress test. Myoview images reported separately. Test Summary REST . . . . . . . Resting REST 10:37 . . 55 . 136/ 92 . . Stage 1 . . . . . . . Myoview Injected Stage 1 01:00 . . 63 . . . . Stage 2 01:00 . . 83 . . . . Stage 3 01:00 . . 66 . 134/ 53 . . Stage 4 01:00 . . 64 . 118/ 44 . . Stage 4 01:01 . . 64 . 118/ 44 . Stop exercise at 04:01 RECOVERY 01:00 . . 77 . . . . RECOVERY 01:27 . . 86 . 124/ 56 . . Electronically signed by : Elisha Clifton MD 05/19/2024 13:38:50
--- NOTE | 2024-05-18 10:59 | CA_ITS ---
APPROVED REPORT EXAM: Comprehensive 2D, Doppler, and color-flow Echocardiogram Coat Maker: Vianey Farmer RT(R) Ht: 5 ft 8 in Wt: 182lbs BSA: 1.96 BP: 139/67 mmHg Indications: Agina, cp, copd, SOB, AFIB, CHF, pericardial effusion, CKD 2D Dimensions Left Atrium 4.00 cm M: 3.0 - 4.0 LVEF ([facility]) 51.10 % M: 52 - 72 LVOT 1.85 cm (M/F) 1.5-2.5 LV Volume 66.30 mL M: 62 - 150 LV Volume Index 33.7 mL/m2 M: 34 - 74 LA Volume 58.30 mL LA Volume Index 29.59 mL/m2 (M/F) 16-34 EF AP4 41.90 % EF AP2 56.6 % EF BP 51.1 % GL Strain -13.1 % M-Mode Dimensions RVDd 1.77 cm (0.9-2.6) LVDd 4.59 cm (3.5-5.7) Ao Diam 2.34 cm (2.0-3.7) LVDs 3.26 cm (3.5-5.7) IVSd 1.01 cm (0.6-1.1) PWd 0.97 cm (0.6-1.1) EF (Teich) 55.80% FS 29.00% EDV (Teich) 96.80 mL TAPSE 1.82 (<1.7) ESV (Teich) 42.80 mL Aortic Valve LVOT Max 86.0 (70-110 cm/s) LVOT VTI 19.94 cm AI PHT 844.00 ms Tricuspid Valve TR P. Velocity 239.00 cm/s RAP Estimate 10.00 mmHg RVSP 32.80 mmHg Left Ventricle The left ventricle is normal size. The left ventricular systolic function is normal. The left ventricular ejection fraction is within the normal range. There is increased LV wall thickness. There is normal LV segmental wall motion. Diastolic function is indeterminate. LVEF is 60%. Right Ventricle Right ventricle is mildly dilated. The right ventricular systolic function is normal. Atria Left atrium is moderately dilated. Right atrium is moderately dilated. There is no Doppler evidence of interatrial shunt. Aortic Valve The aortic valve is mildly thickened. Aortic sclerosis, but no evidence of aortic stenosis. Mild aortic regurgitation. Mitral Valve The mitral valve leaflets are mildly thickened. Mild mitral regurgitation. No evidence of mitral valve stenosis. Tricuspid Valve The tricuspid valve leaflets are thin and pliable. Mild tricuspid regurgitation. RVSP is 25-30 mmHg. Pulmonic Valve The pulmonary valve is normal in structure. Trace pulmonic regurgitation. Great Vessels The aortic root is normal in size. The ascending aorta is not well-visualized. IVC is normal in size and collapses >50% with inspiration. Pericardium There is no pericardial effusion. Other Information Study Quality: Fair Conclusion Normal biventricular systolic function. Mild RV dilation. Biatrial dilation. Mild MR, mild AI, mild TR. Electronically signed by : Elisha Clifton MD 05/20/2024 13:41:55
--- NOTE | 2024-05-18 11:32 | NM_ITS ---
APPROVED REPORT Exam: Nuclear Stress Test Indication: SOB, Palpitations, Family history, Former tobacco use, HTN, CHF, Afib Patient Location: Outpatient Stress Tech: Gabriella Russell [place] Tech:Audrey Dumas, ARRT, RT (R)(N) Ht: 5 ft 7 in Wt: 180 lbs HR: 55 bpm BP: 136/92 mmHg BSA: 1.93 m2 TID: 1.19 BMI: 28.1 History: SOB, Palpitations, Family history, Former tobacco use, HTN, CHF, Afib Procedure: Patient received 0.4 mg of intravenous Lexiscan, resting heart rate 55 bpm, resting blood pressure 136/92 mmHg, with Lexiscan maximum heart rate achieved was 89 bpm which is % of the maximum predicted heart rate and blood pressure was 136/92 mmHg. With Lexiscan, patient denied any complaint of chest pain. Cardiac Stress and Resting SPECT Images: Cardiac Stress and Resting SPECT images were obtained using technetium 99m Myoview 31.9 mCi stress and 10.96 mCi at rest. Right images demonstrate significant soft tissue overlap with the cardiac borders. This may affect the diagnostic interpretation of the study findings. Resting and stress imaging and supine positions demonstrate a medium sized, mild, fixed perfusion defect in the inferior LV wall. This is no longer visualized with prone stress imaging. Findings are suggestive of diaphragmatic attenuation. Gated imaging demonstrates normal global and regional LV systolic function. LVEF estimated at 56%. Conclusion: Technically difficult study. Diaphragmatic attenuation is present. No evidence of fixed or reversible perfusion defects. Gated imaging demonstrates normal global and regional LV systolic function. LVEF estimated at 56%. Electronically signed by : Elisha Clifton MD 05/19/2024 13:40:16
[2024-05-18] MEDS: ISOTOPE MYOVIEW (PER STUDY) 1 DOSE IV (13:35)
[2024-05-18] MEDS: SODIUM CHLORIDE 0.9% 10ML SYR (RAD ONLY) 10 ML IV ×2 (13:35)
[2024-05-18] MEDS: REGADENOSON 0.4MG/5ML SYRINGE 0.4 MG IV (13:35)
== END 2024-05-18 23:59 | disposition home or self-care (01) ==
LOC: RT 10:59
PROVIDERS: PCP Family Medicine; Visit Provider Nurse Practitioner
DX: I51.7 Cardiomegaly (principal); I20.89 Other forms of angina pectoris; I31.39 Other pericardial effusion (noninflammatory); I48.91 Unspecified atrial fibrillation; I50.9 Heart failure, unspecified; R06.00 Dyspnea, unspecified; Z87.891 Personal history of nicotine dependence
CPT/HCPCS: 78452; 93017; 93018; 93306; A9502; J2785

== ENCOUNTER 2024-06-04 09:48 | Outpatient (CLI) | payer MEDICARE, SELFPAY ==
--- NOTE | 2024-06-04 09:56 | US_ITS ---
FINAL REPORT CLINICAL HISTORY: CKD COMPARISON: None FINDINGS: RENAL ULTRASOUND Ultrasound images of the kidneys were obtained. Limited images of the liver parenchyma demonstrates normal echogenicity. The spleen is normal in appearance. The right kidney measures 9.3 cm in length. There is moderate renal cortical thinning. There is no hydronephrosis. The left kidney measures 11.3 cm in length. It is normal echogenicity. There is no hydronephrosis. IMPRESSION: Moderate right renal cortical thinning. Reviewed, Interpreted and Dictated by Vivek Garnica III, MD Transcribed by Sarita Taylor Authenticated and [facility]
== END 2024-06-04 23:59 | disposition home or self-care (01) ==
PROVIDERS: PCP Family Medicine; Visit Provider Student in an Organized Health Care Education/Training Program
DX: N18.30 Chronic kidney disease, stage 3 unspecified (principal)
CPT/HCPCS: 76770

== ENCOUNTER → 2024-06-24 09:19 | Day surgery (SDC) | payer MEDICARE, SELFPAY ==
[2024-06-22 14:54] VITALS: BMI 28.0
--- NOTE | 2024-06-24 09:39 | ECG_ITS ---
APPROVED REPORT Exam: Resting ECG HR:53 bpm ECG Measurements Heart Rate 53 AXES HI 185 P 81 QRSd 100 QRS 72 QT 405 T 62 QTc 387 Conclusion SINUS BRADYCARDIA BORDERLINE ECG UNCONFIRMED REPORT Electronically signed by : Joe Ayala MD 06/26/2024 15:26:19
[2024-06-24] MEDS: LACTATED RINGERS 1000ML 1,000 ML 25 ML IV (09:48)
[2024-06-24 09:57] VITALS: BP 155/69; PULSE 58; RESP 18; TEMP 36.2; O2SAT 97
--- NOTE | 2024-06-24 10:08 | SUR.PREOP ---
Dr. Clifton notified by Matias Curtis RN that EKG shows sinus Ford. MD cancelled procedure today, doesn't need to see pt and pt can go home.
== END ==
PROVIDERS: PCP Family Medicine; Visit Provider Internal Medicine
DX: I48.91 Unspecified atrial fibrillation (principal)
CPT/HCPCS: 93005; 93270; 93312; 93319; J7120

== ENCOUNTER 2024-07-24 11:03 | Outpatient (CLI) | payer MEDICARE, SELFPAY | END 2024-07-24 23:59 | disposition home or self-care (01) | LOC: RT 11:06 | PROVIDERS: PCP Family Medicine; Visit Provider Physician Assistant | DX: I48.91 Unspecified atrial fibrillation (principal); I20.89 Other forms of angina pectoris; I50.9 Heart failure, unspecified; R06.00 Dyspnea, unspecified; J44.9 Chronic obstructive pulmonary disease, unspecified; N18.9 Chronic kidney disease, unspecified | CPT/HCPCS: 93225; 93227 ==

== ENCOUNTER 2024-07-27 14:27 | Outpatient (CLI) | payer MEDICARE, SELFPAY | END 2024-07-27 23:59 | disposition home or self-care (01) | LOC: RT 14:28 | PROVIDERS: PCP Family Medicine; Visit Provider Nurse Practitioner | DX: I48.91 Unspecified atrial fibrillation (principal); I50.9 Heart failure, unspecified; I20.89 Other forms of angina pectoris | CPT/HCPCS: 93270 ==

== ENCOUNTER 2024-08-19 14:25 | Outpatient (CLI) | payer MEDICARE, SELFPAY ==
--- NOTE | 2024-08-19 14:31 | CT_ITS ---
FINAL REPORT TECHNIQUE: Thin section axial images were obtained from the lung apices through the upper abdomen without contrast. This study was performed with techniques to keep radiation doses as low as reasonably achievable (ALARA). Individualized dose reduction techniques using automated exposure control or adjustment of mA and/or kV according to the patient's size were employed. CLINICAL HISTORY: Lymphadenopathy COMPARISON: 05/06/2024 FINDINGS: There is no axillary lymphadenopathy. There are multiple mediastinal lymph nodes. An AP window node measures 15 mm and is improved for 23 mm. Some other mediastinal lymph nodes are also smaller in size. There is no hilar lymphadenopathy. Pleural effusions have resolved. There is a very small pericardial effusion which has improved. Emphysema is noted. There is granulomatous disease. The lungs are otherwise clear. Limited, unenhanced evaluation of the upper abdomen demonstrates a hypodense lesion in the left lobe of the liver which is unchanged. There is mild hyperplasia of the bilateral adrenal glands which appears stable. There is no acute osseous abnormality. IMPRESSION: Improved lymphadenopathy. Resolved pleural effusions. No new abnormality. Reviewed, Interpreted and Dictated by Marisela Brooks MD Transcribed by Mee Chavez Authenticated and [facility]
[2024-08-19] MEDS: ALBUTEROL 0.083% 2.5 MG/3 ML NEB IH (15:40)
[2024-08-19 16:28] VITALS: PULSE 64
== END 2024-08-19 23:59 | disposition home or self-care (01) ==
LOC: RAD 14:25
PROVIDERS: PCP Family Medicine; Visit Provider Internal Medicine Pulmonary Disease
DX: R91.8 Other nonspecific abnormal finding of lung field (principal)
CPT/HCPCS: 71250; 94060; 94618; 94640; 94726; 94729; J7613

== ENCOUNTER 2024-11-25 12:03 | Outpatient (CLI) | payer MEDICARE, OTHER, SELFPAY ==
[2024-11-25 12:26] LABS: Basophils % 0.5 % (0.1-2.0); Eosinophils # 0.3 K/mm3 (0.0-0.4); Eosinophils % 3.7 % (0.1-12.0); Hematocrit 38.6 % (42.0-52.0); Hemoglobin 13.2 g/dL (14.1-18.0); Mean Corpuscular HGB Conc 34.2 g/dL (31.8-35.4); Mean Corpuscular Volume 93.7 fl (80-94); Mean Platelet Volume 10.7 fl (7.4-10.4); Monocytes # 0.6 K/mm3 (0.1-1.0); Monocytes % 7.7 % (1.7-9.3); Neutrophils % 75.3 % (37.0-80.0); Platelet Count 253 K/mm3 (142-424); Red Blood Count 4.12 M/mm3 (4.60-6.20); White Blood Count 7.9 K/mm3 (4.8-10.8)
[2024-11-25 13:56] LABS: Free T4 (Free Thyroxine) 1.32 ng/dl (0.78-2.19)
[2024-11-25 14:43] LABS: Albumin Level 4.2 g/dl (3.5-5.0); Chloride 103 mmol/L (98-107)
[2024-11-25 14:44] LABS: Potassium 4.3 mmoL/L (3.5-5.1); Sodium 139 mmol/L (136-145)
[2024-11-25 14:46] LABS: Alanine Aminotransferase 30 U/L (12-78); Anion Gap 9.3 mEq/L (5-15); Aspartate Amino Transferase 31 U/L (17-59); Bilirubin,Direct 0.3 mg/dl (0.0-0.4); Bilirubin,Indirect 0.6 mg/dL (0.0-0.9); Bilirubin,Total 0.9 mg/dl (0.2-1.3); Bilirubin,Unconjugated 0.6 mg/dL (0.0-1.1); Blood Urea Nitrogen 30 mg/dl (9-20); Carbon Dioxide 31 mmol/L (22.0-30.0); Estimated Glomerular Filt Rate 36 ml/min (>60); GFR (African American) 44 ML/MIN (>60)
[2024-11-25 14:47] LABS: Alkaline Phosphatase 70 U/L (38-126); Calcium 10.1 mg/dl (8.4-10.2); Cholesterol 136 mg/dl (140-200); Glucose 118 mg/dl (74-100); HDL Cholesterol 34 mg/dl (40-60); Iron 108 ug/dL (49-181); Magnesium 1.6 mg/dl (1.6-2.3); Total Protein,Serum 6.3 g/dl (6.3-8.2); Triglycerides 203 mg/dl (30-150); VLDL Cholesterol 41 mg/dL (0-40)
[2024-11-25 14:57] LABS: Total Iron Binding Capacity 383 ug/dL (261-462)
[2024-11-25 14:58] LABS: Direct LDL Cholesterol 67.34 mg/dL (100-129)
[2024-11-25 15:18] LABS: Thyroid Stimulating Hormone 2.71 uIU/mL (0.465-4.68)
[2024-11-25 15:22] LABS: Ferritin 131 ng/ml (17.9-464)
[2024-11-25 16:24] LABS: Folate > 20.00 ng/mL
[2024-11-25 16:35] LABS: Vitamin B12 826 pg/mL (239-931)
[2024-12-03 08:48] LABS: 1,25 Dihydroxy Vitamin D 37 pg/mL (.); 1,25-Dihydroxy, Vitamin D-2 <10 pg/mL (.); 1,25-Dihydroxy, Vitamin D-3 37 pg/mL (.)
== END 2024-11-25 23:59 | disposition home or self-care (01) ==
LOC: LAB 12:04
PROVIDERS: PCP Family Medicine; Visit Provider Physician Assistant
DX: R06.02 Shortness of breath (principal); I50.9 Heart failure, unspecified; N18.9 Chronic kidney disease, unspecified; I20.89 Other forms of angina pectoris; J44.9 Chronic obstructive pulmonary disease, unspecified; I48.0 Paroxysmal atrial fibrillation; K76.9 Liver disease, unspecified; R53.83 Other fatigue
CPT/HCPCS: 36415; 80048; 80061; 80076; 82607; 82652; 82728; 82746; 83540; 83550; 83735; 84439; 84443; 85025

== ENCOUNTER 2024-12-15 14:40 | Outpatient (CLI) | payer MEDICARE, OTHER, SELFPAY ==
--- NOTE | 2024-12-15 14:43 | CT_ITS ---
FINAL REPORT TECHNIQUE: Axial CT images of the abdomen were obtained with IV contrast only. Coronal reformatted images were also obtained. This study was performed with techniques to keep radiation doses as low as reasonably achievable (ALARA). Individualized dose reduction techniques using automated exposure control or adjustment of mA and/or kV according to the patient''s size were employed. CLINICAL HISTORY: liver lesions COMPARISON: 05/06/2024, 08/19/2024 FINDINGS: The lung bases are clear. Multiple, small hypodense liver lesions are not significantly changed from the prior exam. These are favored to be cysts. No new liver lesion is seen. The gallbladder is present. The spleen and pancreas are without acute abnormality. Subtle nodularity to the adrenal glands is unchanged. There is no renal mass or hydronephrosis. The GI tract demonstrates no evidence of small bowel obstruction. There is a ventral hernia containing a portion of the transverse colon as well as fat. This is unchanged from the prior exam. There is no lymphadenopathy or ascites. No acute osseous changes are seen. IMPRESSION: Stable liver lesions which are likely cysts. Stable nodularity to the adrenal glands. Stable ventral hernia. No new abnormality. Reviewed, Interpreted and Dictated by Marisela Brooks MD Transcribed by Mee Chavez Authenticated and [facility][1]
[2024-12-15] MEDS: SODIUM CHLORIDE 0.9% 10ML SYR (RAD ONLY) 10 ML IV (15:16)
[2024-12-15] MEDS: IOPAMIDOL-370 (76%);100ML BOTTLE 75 ML IV (15:16)
== END 2024-12-15 23:59 | disposition home or self-care (01) ==
LOC: RAD 14:43
PROVIDERS: PCP Family Medicine; Visit Provider Physician Assistant
DX: K46.9 Unspecified abdominal hernia without obstruction or gangrene (principal); K76.9 Liver disease, unspecified
CPT/HCPCS: 74160; Q9967

== ENCOUNTER → 2024-12-17 09:07 | Outpatient (CLI) | payer MEDICARE, OTHER, SELFPAY | LOC: SL 09:07 | PROVIDERS: PCP Physician Assistant; Visit Provider Physician Assistant | DX: G47.33 Obstructive sleep apnea (adult) (pediatric) (principal); I48.0 Paroxysmal atrial fibrillation; R53.83 Other fatigue; Z72.820 Sleep deprivation | CPT/HCPCS: G0399 ==

== ENCOUNTER 2025-01-20 09:54 | Outpatient (CLI) | payer MEDICARE, OTHER, SELFPAY ==
--- OUTSIDE RECORDS SUMMARY | 2025-01-20 09:58 | XMS_ITS | Data Portability ---
Author Organization [facility] & [facility] ADMIN Address [address] [place] [id number] Assessment No assessment recorded. Plan of Treatment Reminders Order Date Submit Date Provider Last Modified By Organization Details Last Modified Time Details Appointments None record ed. Lab None record ed. Referral None record ed. Procedures None record ed. Surgeries None record ed. Imaging None record ed. Medication Orders None record ed. Patient TargetsNo targets recorded. Patient InstructionsNo instructions recorded. Reason for Referral None Reported. Problems Name Problem SNOMED Code Status Onset Date Resolution Date Notes Provider Name and Address Organization Details Recorded Time Sensorineural hearing loss 52195372 Active 2022 DANO FAITH, AUD [address] [facility], [place], [address] , [facility] & [place] 3 14:40:32 Problem Notes None recorded. Medical Equipment None Reported. Medications Name Sig Start Date Stop Date Status Note LastModified by Organization Details LastModified Time furosemide 40 mg tablet TAKE 1 TABLET BY MOUTH ONCE DAILY active Not Available Not Available No t Available latanoprost 0.005 % eye drops INSTILL 1 DROP INTO EACH EYE ONCE DAILY AT NIGHT AT BEDTIME active Not Available Not Available No t Available gabapentin 600 mg tablet TAKE 1 TABLET BY MOUTH EVERY 6 HOURS active Not Available Not Available No t Available doxycycline hyclate 100 mg capsule TAKE 1 CAPSULE BY MOUTH TWICE DAILY active Not Available Not Available No t Available ipratropium 0.5 mg-albuterol 3 mg (2.5 mg base)/3 mL nebulization soln USE 3 ML IN NEBULIZER EVERY 4 HOURS NEEDED FOR WHEEZING active Not Available Not Available No t Available divalproex 250 mg tablet,delay ed release TAKE 1 TABLET BY MOUTH ONCE DAILY AT BEDTIME active Not Available Not Available No t Available azithromycin 250 mg tablet TAKE 2 TABLETS BY MOUTH ON DAY 1, AND THEN TAKE 1 TABLET BY MOUTH ONCE A DAY ON DAY 2 THROUGH DAY 5 active Not Available Not Available No t Available benzonatate 200 mg capsule TAKE 1 CAPSULE BY MOUTH EVERY 8 HOURS NEEDED FOR COUGH active Not Available Not Available No t Available prednisone 20 mg tablet TAKE 2 TABLETS BY MOUTH ONCE DAILY FOR 4 DAYS, THEN 1 TABLET ONCE DAILY FOR 4 DAYS, THEN 1/2 TABLET ONCE DAILY FOR 4 DAYS, THEN STOP active Not Available Not Available No t Available spironolacto ne 25 mg tablet TAKE 1/2 (ONE-HALF) TABLET BY MOUTH ONCE DAILY active Not Available Not Available No t Available metoprolol tartrate 100 mg-hydrochlo rothiazide 25 mg tablet active Not Available Not Available Not Available dexamethason e 1 mg tablet TAKE 3 TABLETS BY MOUTH ONCE DAILY FOR 4 DAYS, THEN TAKE 2 TABLETS DAILY FOR 4 DAYS, THEN TAKE 1 TABLET DAILY FOR 4 DAYS, THEN 1/2 TABLET DAILY FOR 4 DAYS THEN STOP active Not Available Not Available No t Available cephalexin 500 mg capsule TAKE 2 CAPSULES BY MOUTH TWICE DAILY active Not Available Not Available No t Available levothyroxin e 125 mcg tablet TAKE 1 TABLET BY MOUTH ONCE DAILY active Not Available Not Available No t Available prednisone 50 mg tablet TAKE 1 TABLET BY MOUTH ONCE DAILY FOR 5 DAYS. PLEASE BEGIN 1 DAY AFTER ED VISIT active Not Available Not Available No t Available dorzolamide 22.3 mg-timolol 6.8 mg/mL eye drops INSTILL 1 DROP INTO EACH EYE TWICE DAILY active Not Available Not Available Not Available furosemide 20 mg tablet TAKE 1 TABLET BY MOUTH ONCE DAILY IN THE MORNING active Not Available Not Available Not Available testosterone cypionate 200 mg/mL intramuscula r oil INJECT 1 ML INTRAMUSCUL GERRY ONCE EVERY MONTH active Not Available Not Available Not Available levofloxacin 500 mg tablet TAKE 1 TABLET BY MOUTH ONCE DAILY FOR 20 DAYS active Not Available Not Available No t Available albuterol sulfate HFA 90 mcg/actuatio n aerosol inhaler INHALE 2 PUFFS BY MOUTH EVERY 4 HOURS NEEDED FOR SHORTNESS OF BREATH OR WHEEZING active Not Available Not Available Not Available alfuzosin ER 10 mg tablet,exten ded release 24 hr active Not Available Not Available Not Available Eliquis 2.5 mg tablet TAKE 1 TABLET BY MOUTH TWICE DAILY active Not Available Not Available No t Available Trelegy Ellipta 100 mcg-62.5 mcg-25 mcg powder for inhalation INHALE 1 PUFF BY MOUTH ONCE DAILY active Not Available Not Available No t Available Vitals None Recorded Social History None recorded. Functional Status None recorded. Mental Status None recorded. Family History Nothing Reported. Medical History No medical history recorded. Past Encounters Encounter ID Performer Location Encounter Start Date Encounter Closed Date Diagnosis/Indication Diagnosis SNOMED-CT Code Diagnosis ICD10 Code Diagnosis Note [id number] [facility]ELSEY GARCIA [facility] [id number] 05/29/2023 14:22:19 05/29/2023 14:34:04 Sensorineural hearing loss 71825487 H90.3 [id number] [facility] [id number] 06/12/2023 10:04:12 06/12/2023 10:05:21 Sensorineural hearing loss 00011991 H90.3 [id number] [facility] [id number] 07/08/2024 14:50:14 07/08/2024 15:07:31 Sensorineural hearing loss 60487527 H90.3 Health Concerns Section Related Observation LastModified by Organization Detai ls LastModified Time None Recorded Concern Status LastModified by Organization Details LastModified Time None Recorded Advance Directives Directive None Recorded Payers Encounter Date Sequence Insurance Name Policy Number Policy Malik Covered Member ID Malik Member ID Guarantor Name 05/29/2023 1 [employer] (MEDICARE REPLACEMENT/A DVANTAGE - PPO) Erik Rey [id number] Erik Rey 07/08/2024 1 [employer] (MEDICARE REPLACEMENT/A DVANTAGE - PPO) Erik Rey [id number] Erik Rey Notes Date Note Type Note Provider Name and Address Organization Details Recorded Time 05/29/2023 text/html Patient was seen today for a hearing aid service. Cleaned and adjusted hearing aids this date. KELSEY GARCIA [address] , [place], [address], [facility] & [place] 05/29/2023 14:40:48 06/12/2023 text/html Patient was seen today for a hearing aid service. Cleaned and adjusted hearing aids this date. DANO FAITH, KELSEY [address] , [place], [address], [facility] & [place] 06/12/2023 10:05:44 07/08/2024 text/html Patient was seen today for a hearing aid service. Cleaned and adjusted hearing aids this date. DANO FAITH, KELSEY [address] , [place], [address], [place] [facility] & [place] 07/08/2024 15:11:04
--- NOTE | 2025-01-20 10:00 | XR_ITS ---
FINAL REPORT TECHNIQUE: Chest PA & Lateral CLINICAL HISTORY: Shortness of breath x4 days worsening COMPARISON: 05/06/2024 FINDINGS: 2 views of the chest were performed. The heart size is normal. The mediastinum is within normal limits. There is no acute cardiopulmonary process. Calcified granuloma in the right midlung. There are no pleural effusions. There is no pneumothorax. The bony thorax appears intact. IMPRESSION: No acute cardiopulmonary process. Reviewed, Interpreted and Dictated by Wiliam Hilario MD Transcribed by Mamie Kilgore Authenticated and [facility]
[2025-01-20 10:59] LABS: Basophils % 0.5 % (0.1-2.0); Eosinophils # 0.2 Kmm3 (0.0-0.4); Eosinophils % 2.2 % (0.1-12.0); Hematocrit 40.8 % (42.0-52.0); Hemoglobin 13.4 g/dL (14.1-18.0); Lymphocytes % 12.8 % (10-50); Mean Corpuscular HGB Conc 32.8 g/dL (31.8-35.4); Mean Corpuscular Hemoglobin 31.7 pg (27.0-31.2); Mean Corpuscular Volume 96.5 fl (80-94); Mean Platelet Volume 10.9 fl (7.4-10.4); Monocytes # 0.8 K/mm3 (0.1-1.0); Monocytes % 9.3 % (1.7-9.3); Neutrophils # 6.1 K/mm3 (1.8-7.8); Neutrophils % 74.7 % (37.0-80.0); Nucleated Red Blood Cells # 0 10^3/uL; Nucleated Red Blood Cells % 0 %; Platelet Count 266 K/mm3 (142-424); Red Blood Count 4.23 M/mm3 (4.60-6.20); Red Cell Distribution Width 13.6 % (11.5-17.5); Red Cell Distribution Width-SD 48.3 fL; White Blood Count 8.1 K/mm3 (4.8-10.8)
[2025-01-20 11:37] LABS: Anion Gap 9.1 mEq/L (5-15); Blood Urea Nitrogen 22 mg/dl (9-20); Calcium 9.6 mg/dl (8.4-10.2); Carbon Dioxide 30 mmol/L (22.0-30.0); Chloride 106 mmol/L (98-107); Estimated Glomerular Filt Rate 39 ml/min (>60); GFR (African American) 47 ML/MIN (>60); Glucose 109 mg/dl (74-100); Potassium 5.1 mmoL/L (3.5-5.1); Sodium 140 mmol/L (136-145)
[2025-01-20 11:44] LABS: NT Pro Brain Natriuretic Pep. 374 pg/mL (0-450)
== END 2025-01-20 23:59 | disposition home or self-care (01) ==
LOC: LAB 09:55
PROVIDERS: PCP Family Medicine; Visit Provider Physician Assistant
DX: R06.02 Shortness of breath (principal); I50.9 Heart failure, unspecified; R06.09 Other forms of dyspnea
CPT/HCPCS: 36415; 71046; 80048; 83880; 85025

== ENCOUNTER 2025-04-16 11:19 | Emergency (ER) | payer MEDICARE, OTHER, SELFPAY ==
[2025-04-16] VITALS (7 sets, daily range): BP systolic 134–148; BP diastolic 71–80; PULSE 64–89; RESP 19–24; TEMP 36.6–37; O2SAT 95–99; BMI 29.0
--- NOTE | 2025-04-16 11:23 | [facility].EDGENADL ---
Discharge Plan Disposition Chief Complaint: Shortness of Breath/Dyspnea Prescriptions Prescriptions: No Action testosterone cypionate 200 mg/mL oil 200 mg IM MONTHLY Patient Comments: INJECT 1 ML INTRAMUSCULARLY ONCE EVERY MONTH fluticasone propionate [Flonase Allergy Relief] 50 mcg/actuation spray,suspension 2 spray intranasal DAILY 90 Days Qty: 16 2RF Rx Instructions: administer into each nostril doxycycline hyclate 100 mg capsule 100 mg PO BID 10 Days Qty: 20 0RF Eliquis 2.5 mg tablet 2.5 mg PO BID Qty: 60 5RF alfuzosin 10 mg tablet extended release 24 hr 10 mg PO DAILY Rx Instructions: administer after the same meal each day levothyroxine 125 mcg capsule 125 mcg PO DAILY dorzolamide-timolol (PF) 2-0.5 % dropperette 1 drp ophthalmic (eye) BID latanoprost 0.005 % drops 1 drp ophthalmic (eye) HS Eliquis 5 mg tablet 0RF metoprolol succinate [Toprol XL] 50 mg tablet extended release 24 hr 50 mg PO DAILY Qty: 30 3RF hydrochlorothiazide 12.5 mg tablet 12.5 mg PO DAILY Qty: 30 3RF furosemide 40 mg tablet 20 mg PO DAILY PRN (Reason: edema/SOA) Qty: 30 0RF dorzolamide-timolol 22.3-6.8 mg/mL drops 1 drp Eye-Both BID spironolactone [Aldactone] 25 mg tablet 12.5 mg PO DAILY Qty: 30 11RF Trelegy Ellipta 100-62.5-25 mcg blister with device 1 inh inhalation DAILY Qty: 60 0RF albuterol sulfate 90 mcg/actuation HFA aerosol inhaler 2 inh inhalation Q4H PRN (Reason: shortness of breath or wheezing) Qty: 8.5 0RF ipratropium-albuterol 0.5 mg-3 mg(2.5 mg base)/3 mL solution for nebulization 3 ml inhalation Q4H PRN (Reason: wheezing) Qty: 90 0RF Referrals Follow up/Referrals: Gennaro Salamanca [Primary Care Provider, Medical] - See instructions Print Language Print Language: French Discharge ED Provider: Eleuterio Moy Adult HPI General Chief complaint: Shortness of Breath/Dyspnea Stated complaint: COPD; Unable to sleep past 2 nights; Congestion Time Seen by Provider: 04/16/25 11:23 History of Present Illness HPI narrative: Patient is an 79-year-old male with history of hypertension hyperlipidemia congestive heart failure diabetes COPD, CKD, A-fib on Eliquis. He presents today due to concerns for shortness of breath, specifically orthopnea. He reports over the last 4 days, when he goes to lay down at night, he is significantly short of breath and has to sit up. He has started taking his Lasix 40 mg daily everyday for the last 4 days, but still is short of breath when he lays down and some with exertion. He denies any chest pain. Reports compliance with all of his other medicines. Denies any lower extremity edema. Denies any productive cough or fevers or sick contacts. Related Data Home Medications ?Medication ?Instructions ?Recorded ?Confirmed alfuzosin 10 mg tablet,extended 10 mg PO DAILY 05/07/24 01/20/25 release 24 hr dorzolamide-timolol (PF) 2 %-0.5 % 1 drp ophthalmic (eye) BID 05/07/24 01/20/25 eye drops in a dropperette latanoprost 0.005 % eye drops 1 drp ophthalmic (eye) HS 05/07/24 01/20/25 levothyroxine 125 mcg capsule 125 mcg PO DAILY 05/07/24 01/20/25 testosterone cypionate 200 mg/mL 200 mg IM MONTHLY 05/11/24 01/20/25 intramuscular oil dorzolamide 22.3 mg-timolol 6.8 1 drp Eye-Both BID 11/25/24 01/20/25 mg/mL eye drops Previous Rx's ?Medication ?Instructions ?Recorded albuterol sulfate 90 mcg/actuation 2 inh inhalation Q4H PRN shortness 05/06/24 aerosol inhaler of breath or wheezing #8.5 grams fluticasone fur. 100 mcg-umeclid 1 inh inhalation DAILY #60 ea 05/06/24 62.5 mcg-vilant 25 mcg inhalat.powder (Trelegy Ellipta) ipratropium 0.5 mg-albuterol 3 mg 3 ml inhalation Q4H PRN wheezing 05/06/24 (2.5 mg base)/3 mL nebulization #90 mL soln hydrochlorothiazide 12.5 mg tablet 12.5 mg PO DAILY #30 tabs 08/13/24 metoprolol succinate 50 mg 50 mg PO DAILY #30 tabs 08/13/24 tablet,extended release 24 hr (Toprol XL) furosemide 40 mg tablet 20 mg (1/2 x 40 mg) PO DAILY PRN 08/26/24 edema/SOA #30 tabs apixaban 2.5 mg tablet (Eliquis) 2.5 mg PO BID #60 tabs 12/16/24 doxycycline hyclate 100 mg capsule 100 mg PO BID 10 days #20 caps 12/16/24 fluticasone propionate 50 2 spray intranasal DAILY 90 days 01/22/25 mcg/actuation nasal #16 grams spray,suspension (Flonase Allergy Relief) spironolactone 25 mg tablet 12.5 mg (1/2 x 25 mg) PO DAILY #30 03/30/25 (Aldactone) tabs Allergies Allergy/AdvReac Type Severity Reaction Status Date / Time meperidine (From Demerol) Allergy Other Verified 01/22/25 10:25 [facility] Disclaimer: The information contained in this section may have been updated after the patient was seen, as this information can be updated by other users. Medical History Poor sleep Fatigue Mediastinal lymphadenopathy Pleural effusion, bilateral History of COPD History of smoking 30 or more pack years Dyspnea on exertion CKD (chronic kidney disease) Atypical angina Dyspnea COPD (chronic obstructive pulmonary disease) Atrial fibrillation Surgical History History of dental surgery History of cataract surgery Family History Other COPD (chronic obstructive pulmonary disease) Cancer Heart attack Hypertension Social History Smoking Status: Former smoker smoking status stop date: 1998 alcohol intake: never current occupational status: other Travel in the last 8 weeks?: None Have you lived/traveled outside [place] in past 30 days?: No Contact w/someone who lives/traveled outside [place] past 30 days?: No Exposure to someone with infectious disease in past 14 days?: No Do you have a fever (greater than 100.4 F or 38 C)?: No Have you tested positive for COVID-19?: No Exposed to someone with COVID-19 in past 14 days?: No Do you have a sore throat?: No Do you have a cough?: No Do you have any weakness?: No Do you have any diarrhea?: No Are you experiencing any unusual bleeding?: No Do you have any muscle aches/pain?: No Do you have any abdominal pain?: No Are you experiencing loss of taste or smell?: No Other Medical History Have you received the Pneumonia Vaccine: Yes ROS Obtained: Yes All systems reviewed & no additional complaints except as documented Physical Exam General General appearance: alert and in no apparent distress Head Head exam: atraumatic and normocephalic Eye Eye exam: Present PERRL and EOMI ENT ENT exam: Present normal oropharynx Neck Neck exam: Present full ROM and trachea midline Chest Chest inspection: Present symmetric chest wall rise Respiratory Respiratory exam: Present normal lung sounds bilaterally and other (Crackles in the bilateral bases); Absent stridor Cardiovascular Cardiovascular exam: Present regular rate and normal rhythm Abdominal Exam Abdominal exam: Present soft; Absent distention or tenderness Extremities Exam Extremities exam: Present full ROM Neurological Exam Neurological exam: Present alert and oriented X3 Psychiatric Psychiatric exam: Present normal mood Skin Skin exam: Present warm and dry Medical Decision Making Medical Records Screening: Per USPSTF and CDC recommendations, given the prevalence of disease in our region, it is our hospital?s policy to screen for HIV and viral Hepatitis for all patients aged 18 and over and those with ongoing risk factors. [place] Inquiry Pt receiving controlled substance: No Vital Signs: 04/16/25 11:28 04/16/25 11:28 04/16/25 11:30 Temperature 97.9 F Temperature Source Oral Pulse Rate 64 69 Pulse Rate [Left] 74 Respiratory Rate 24 22 22 Blood Pressure Blood Pressure [Right Arm] 134/80 Blood Pressure Mean [Right Arm] 98 Blood Pressure Source [Right Arm] Automatic Cuff Blood Pressure Position [Right Arm] Supine 02 Sat by Pulse Oximetry 95 99 99 Oxygen Delivery Method Room Air Room Air Room Air 04/16/25 12:00 Temperature Temperature Source Pulse Rate 64 Pulse Rate [Left] Respiratory Rate Blood Pressure 147/77 H Blood Pressure [Right Arm] Blood Pressure Mean [Right Arm] Blood Pressure Source [Right Arm] Blood Pressure Position [Right Arm] 02 Sat by Pulse Oximetry 98 Oxygen Delivery Method Room Air Lab Data Lab Results 04/16/25 11:36: WBC 8.8, RBC 4.62, Hgb 13.7 L, Hct 42.7, MCV 92.4, MCH 29.7, MCHC 32.1, RDW 14.3, Plt Count 253, MPV 12.0 H, Neut % (Auto) 75.2, Lymph % (Auto) 11.6, [place] % (Auto) 9.6 H, Eos % (Auto) 2.2, Baso % (Auto) 0.6, Neut # (Auto) 6.6, Lymph # (Auto) 1.0, [place] # (Auto) 0.8, Eos # (Auto) 0.2, Baso # (Auto) 0.1, PT 11.9, INR 1.08, D-Dimer 0.77 H, Sodium 135 L, Potassium 3.4 L, Chloride 96 L, Carbon Dioxide 33 H, Anion Gap 9.4, BUN 29 H, Creatinine 1.80 H, Estimated Creat Clear 39, Estimated GFR 36 L, Est GFR ( Amer) 44 L, Glucose 121 H, Calcium 9.5, Magnesium 1.3 L, Total Bilirubin 0.9, AST 40, ALT 45, Alkaline Phosphatase 55, Troponin I 0.02, NT-Pro-B Natriuret Pep 269, Total Protein 6.8, Albumin 3.4 L, Globulin 3.4 H, Albumin/Globulin Ratio 1.0 L, HCV Ab DULCE MARIA w/Rflx PCR Qn Negative, HIV Ag/Ab Combo Qual Negative 04/16/25 12:29: Urine Color Yellow, Urine Appearance Clear, Urine pH 6.0, Ur Specific [place] 1.015, Urine Protein Negative, Urine Glucose (UA) Negative, Urine Ketones Negative, Urine Blood Negative, Urine Nitrate Negative, Urine Bilirubin Negative, Urine Urobilinogen 0.2, Ur Leukocyte Esterase Negative, Urine RBC None, Urine WBC None, Ur Squamous Epith Cells Occasional, Urine Bacteria Trace 04/16/25 11:36 04/16/25 11:36 Orders (Tests/Meds): ORDERS Category Date Time Status XR chest 2V Stat Exams 04/16/25 11:49 Completed BNP [NT Pro Brain Natriuretic Pep.] Stat Lab 04/16/25 11:36 Completed CBC w/Auto Diff [Complete Blood Count Auto Diff] Stat Lab 04/16/25 11:36 Completed CMP [Comprehensive Metabolic Panel] Stat Lab 04/16/25 11:36 Completed D-Dimer Stat Lab 04/16/25 11:36 Completed HIV Combo Stat Lab 04/16/25 11:36 Completed Hepatitis C Ab Qual. W/ RFX Stat Lab 04/16/25 11:36 Completed MAG [Magnesium] Stat Lab 04/16/25 11:36 Completed PT INR [Prothrombin Time INR] Stat Lab 04/16/25 11:36 Completed Trop I [Troponin I] Stat Lab 04/16/25 11:36 Completed Troponin I Q3H Lab 04/16/25 15:00 Ordered Troponin I Q3H Lab 04/16/25 18:00 Ordered Urinalysis and Microscopic Stat Lab 04/16/25 12:29 Completed Medical Decision Narrative: Patient is an 79-year-old male with history of A-fib on Eliquis CHF, hypertension hyperlipidemia COPD. Presents today for shortness of breath specifically orthopnea when tried to go to bed at night. On exam, is warm well-perfused full pulses in all extremities brisk Apley refill no significant lower extremity edema. Heart is regular no rhythm lung sounds have crackles in the bases bilaterally. He is resting comfortably with no increased work of breathing on my examination, but he is sitting up. He is on room air. Hemodynamically stable otherwise. Clinically the history is most consistent with CHF exacerbation. Will proceed with ACS and CHF workup as well as low risk screening for PE with a D-dimer. Will await CMP to review electrolytes and BNP and then will attempt IV diuresis with 40 of Lasix monitor improvement. He has no wheezing, lower suspicion for COPD exacerbation. D-dimer negative when applying years criteria. Troponins flat low suspicion for ACS. Chest x-ray independently interpreted by myself demonstrate no evidence of focal consolidation or significant pleural effusions. Clinically, patient still continues to exhibit volume overload, regardless of his normal BNP, but he is at no increased work of breathing on my examination and remains on room air. I offered him IV diuresis here, but he is already urinating plenty as he has taken his morning Lasix orally today. He declines IV diuresis here and prefers to manage at home. This felt to be reasonable given his clinic stability, but is not given strict precautions. He has follow-up with his count team clerk on Saturday. My clinical impression was discussed with the patient and all questions were answered. Return precautions were given, with verbalization of understanding and agreement of this plan. Any pending results are to be followed up online. Critical Care Critical Care Time Critical Care Time: No
--- OUTSIDE RECORDS SUMMARY | 2025-04-16 11:30 | XMS_ITS | Data Portability ---
Author Organization [facility] [place] [facility] Address [address] [address] [place] [address] Care Team Providers Care Bucket Chucker Name Role Phone ZARA BOBO Primary Care Provider [phone] Assessment Encounter Date Assessment Date Assessment LastModified by Organization Details LastModified Time 01/09/2018 01/09/2018 Examination and symptoms consistent with probable prostatitis. We discussed the diagnosis and treatment options. Antibiotics and alpha misty prescribed. Not available 01/15/2018 19:20:58 02/13/2018 02/13/2018 No palpable abnormality by examination. [email or web address] Not available 02/23/2018 15:49:28 02/12/2019 02/12/2019 Trial of alpha-misty therapy. [email or web address] Not available 02/26/2019 10:54:30 04/02/2019 04/02/2019 Continue Uroxatral. PSA good at 0.94. [email or web address] Not available 04/12/2019 15:44:29 10/08/2019 10/08/2019 Continue Uroxatral. [email or web address] Not available 10/11/2019 21:59:52 Plan of Treatment Reminders Order Date Submit Date Provider Last Modified By Organization Details Last Modified Time Details Appointments None recorded. Lab urinalysis , dipstick, auto 2019 020 [email or web address] 4 [facility] [place] Extended Services With [facility], [address] [place] [address] Dr Kiran, [place], [address], 0 21:59:53 PSA, serum or plasma 2018 019 [facility] (Lab Registration) , [address] [place], [address], 9 16:16:38 urinalysis , dipstick, auto 2018 019 [email or web address] 4 [facility] Extended Services With [facility], [address] Kiran, [place], [address], 9 15:43:01 urinalysis , dipstick, auto 2018 019 [id number] 4 [facility] Extended Services With [facility], [address] Kiran, [place], [address], 9 14:52:03 urinalysis , dipstick, auto 2017 018 4 [facility] Extended Services With [facility], [address] Kiran, [place], [address], 8 15:49:37 urinalysis , dipstick, auto 2017 018 [email or web address] 4 [facility] Extended Services With [facility], [address] Kiran, [place], [address], 8 19:20:34 Referral None recorded. Procedures None recorded. Surgeries None recorded. Imaging None recorded. Medication Orders Uroxatral 10 mg tablet,ext ended release 2018 019 [email or web address] [facility], [address], [place], [address], 9 17:25:04 Uroxatral 10 mg tablet,ext ended release 2018 019 INTERFACE [facility], [address], [place], [address], 9 14:52:07 Cipro 500 mg tablet [address] [facility] [address] [facility], [address] [place], [address], 8 16:51:42 Flomax 0.4 mg capsule [address] [facility] [address] [facility], [address] [place], [address], 8 16:51:46 Patient TargetsNo targets recorded. Patient Instructions Encounter Date Encounter Id Patient Instructions Last Modified By Organization Details Last Modified Time 01/09/2018 [id number] prostatitis: car e instructions [email or web address] Not available 01/09/2018 16:05:21 healthy together [id number] Not availab le 01/15/2018 19:20:34 02/12/2019 [id number] healthy together [email or web address] Not availa ble 02/12/2019 14:52:03 Reason for Referral None Reported. Results Created Date Observation Date Name Description Value Unit Range Abnormal Flag Note LastModifiedBy Organization Detail LastModifiedTime 10/08/19 20 10/08/2019 urina lysis , dipst ick, auto Unknown Analyte Yellow Not Available [facility], [facility] Extended Services With [address] Kir[address], [place], [address], 10/08/2019 15:48:14 10/08/19 20 10/08/2019 urina lysis , dipst ick, auto Unknown Analyte Clear Not Available [facility], [facility] Extended Services With [address] [place], [address], 10/08/2019 15:48:14 10/08/19 20 10/08/2019 urina lysis , dipst ick, auto Unknown Analyte 1.020 Not Available [facility], [facility] Extended Services With [address] Kiran, [place], [address], 10/08/2019 15:48:14 10/08/19 20 10/08/2019 urina lysis , dipst ick, auto Unknown Analyte 1.003 - 1.035 Not Available [facility] Extended Services With [address] Kiran, [place], [address], 10/08/2019 15:48:14 10/08/19 20 10/08/2019 urina lysis , dipst ick, auto Unknown Analyte 5.0 Not Available [facility], [facility] Extended Services With [address] [place], [address], 10/08/2019 15:48:14 10/08/19 20 10/08/2019 urina lysis , dipst ick, auto Unknown Analyte 5.0 - 8.0 Not Available [facility] Extended Services With [address] Kiran, [place], [address], 10/08/2019 15:48:14 10/08/19 20 10/08/2019 urina lysis , dipst ick, auto Unknown Analyte Negati ve Not Available [facility] Extended Services With [address] Kiran, [place], [address], 10/08/2019 15:48:14 10/08/19 20 10/08/2019 urina lysis , dipst ick, auto Unknown Analyte Negati ve Not Available [facility] Extended Services With [address] [place], [address], 10/08/2019 15:48:14 10/08/19 20 10/08/2019 urina lysis , dipst ick, auto Unknown Analyte Negati ve Not Available [facility] Extended Services With [address] [place], [address], 10/08/2019 15:48:14 10/08/19 20 10/08/2019 urina lysis , dipst ick, auto Unknown Analyte Negati ve Not Available [facility] Extended Services With [address] [place], [address], 10/08/2019 15:48:14 10/08/19 20 10/08/2019 urina lysis , dipst ick, auto Unknown Analyte Negtiv e Not Available [facility] Extended Services With [address] Kiran, [place], [address], 10/08/2019 15:48:14 10/08/19 20 10/08/2019 urina lysis , dipst ick, auto Unknown Analyte Negati ve - Trace Not Available [facility] Extended Services With [address] Kiran, [place], [address], 10/08/2019 15:48:14 10/08/19 20 10/08/2019 urina lysis , dipst ick, auto Unknown Analyte Normal Not Available [facility], [facility] Extended Services With [address] [place], [address], 10/08/2019 15:48:14 10/08/19 20 10/08/2019 urina lysis , dipst ick, auto Unknown Analyte Normal Not Available [facility], [facility] Extended Services With [address] Kiran, [place], [address], 10/08/2019 15:48:14 10/08/19 20 10/08/2019 urina lysis , dipst ick, auto Unknown Analyte Negati ve Not Available [facility] Extended Services With [address] [place], [address], 10/08/2019 15:48:14 10/08/19 20 10/08/2019 urina lysis , dipst ick, auto Unknown Analyte Negati ve Not Available [facility] Extended Services With [address] [place], [address], 10/08/2019 15:48:14 10/08/19 20 10/08/2019 urina lysis , dipst ick, auto Unknown Analyte Normal Not Available [facility], [facility] Extended Services With [address] Kiran, [place], [address], 10/08/2019 15:48:14 10/08/19 20 10/08/2019 urina lysis , dipst ick, auto Unknown Analyte Normal - 1mg/dl Not Available [facility] Extended Services With [address] Kiran, [place], [address], 10/08/2019 15:48:14 10/08/19 20 10/08/2019 urina lysis , dipst ick, auto Unknown Analyte Negati ve Not Available [facility] Extended Services With [address] [place], [address], 10/08/2019 15:48:14 10/08/19 20 10/08/2019 urina lysis , dipst ick, auto Unknown Analyte Negati ve Not Available [facility] Extended Services With [address] Kiran, [place], [address], 10/08/2019 15:48:14 10/08/19 20 10/08/2019 urina lysis , dipst ick, auto Unknown Analyte Negati ve Not Available [facility] Extended Services With [address] [place], [address], 10/08/2019 15:48:14 10/08/19 20 10/08/2019 urina lysis , dipst ick, auto Unknown Analyte Negati ve Not Available [facility] Extended Services With [address] [place], [address], 10/08/2019 15:48:14 10/08/19 20 10/08/2019 urina lysis , dipst ick, auto Unknown Analyte Clean Catch Not Available [facility] Extended Services With [address] [place], [address], 10/08/2019 15:48:14 10/08/19 20 10/08/2019 urina lysis , dipst ick, auto Unknown Analyte Automa edilberto Not Available [facility] [place] Extended Services With [address] [place], [address], 10/08/2019 15:48:14 04/02/20 19 04/02/2019 urina lysis , dipst ick, auto Unknown Analyte Yellow Not Available [facility], [facility] Extended Services With [address] [place], [address], 04/02/2019 17:25:15 04/02/20 19 04/02/2019 urina lysis , dipst ick, auto Unknown Analyte Clear Not Available [facility], [facility] Extended Services With [address] [place], [address], 04/02/2019 17:25:15 04/02/20 19 04/02/2019 urina lysis , dipst ick, auto Unknown Analyte 1.020 Not Available [facility], [facility] Extended Services With [address] [place], [address], 04/02/2019 17:25:15 04/02/20 19 04/02/2019 urina lysis , dipst ick, auto Unknown Analyte 1.003 - 1.035 Not Available [facility] [place] Extended Services With [address] [place], [address], 04/02/2019 17:25:15 04/02/20 19 04/02/2019 urina lysis , dipst ick, auto Unknown Analyte 5.0 Not Available [facility], [facility] Extended Services With [address] [place], [address], 04/02/2019 17:25:15 04/02/20 19 04/02/2019 urina lysis , dipst ick, auto Unknown Analyte 5.0 - 8.0 Not Available [facility] [place] [facility] With [address] Kiran, [place], [address], 04/02/2019 17:25:15 04/02/20 19 04/02/2019 urina lysis , dipst ick, auto Unknown Analyte Negati ve Not Available [facility] Extended Services With [address]an, [place], [address], 04/02/2019 17:25:15 04/02/20 19 04/02/2019 urina lysis , dipst ick, auto Unknown Analyte Negati ve Not Available [facility] Extended Services With [address] [place], [address], 04/02/2019 17:25:15 04/02/20 19 04/02/2019 urina lysis , dipst ick, auto Unknown Analyte Negati ve Not Available [facility] Extended Services With [address], [place], [address], 04/02/2019 17:25:15 04/02/20 19 04/02/2019 urina lysis , dipst ick, auto Unknown Analyte Negati ve Not Available [facility] Extended Services With [address], [place], [address], 04/02/2019 17:25:15 04/02/20 19 04/02/2019 urina lysis , dipst ick, auto Unknown Analyte Negtiv e Not Available [facility] Extended Services With [address] [place], [address], 04/02/2019 17:25:15 04/02/20 19 04/02/2019 urina lysis , dipst ick, auto Unknown Analyte Negati ve - Trace Not Available [facility] Extended Services With [address] [place], [address], 04/02/2019 17:25:15 04/02/20 19 04/02/2019 urina lysis , dipst ick, auto Unknown Analyte Normal Not Available [facility], [facility] Extended Services With [address] [place], [address], 04/02/2019 17:25:15 04/02/20 19 04/02/2019 urina lysis , dipst ick, auto Unknown Analyte Normal Not Available [facility], [facility] Extended Services With [address] [place], [address], 04/02/2019 17:25:15 04/02/20 19 04/02/2019 urina lysis , dipst ick, auto Unknown Analyte Negati ve Not Available [facility] Extended Services With [address] [place], [address], 04/02/2019 17:25:15 04/02/20 19 04/02/2019 urina lysis , dipst ick, auto Unknown Analyte Negati ve Not Available [facility] Extended Services With [address] [place], [address], 04/02/2019 17:25:15 04/02/20 19 04/02/2019 urina lysis , dipst ick, auto Unknown Analyte Normal Not Available [facility], [facility] Extended Services With [address] [place], [address], 04/02/2019 17:25:15 04/02/20 19 04/02/2019 urina lysis , dipst ick, auto Unknown Analyte Normal - 1mg/dl Not Available [facility] Extended Services With [address] [place], [address], 04/02/2019 17:25:15 04/02/20 19 04/02/2019 urina lysis , dipst ick, auto Unknown Analyte Negati ve Not Available [facility] [place] Extended Services With [address] [place], [address], 04/02/2019 17:25:15 04/02/20 19 04/02/2019 urina lysis , dipst ick, auto Unknown Analyte Negati ve Not Available [facility] [place] Extended Services With [address] [place], [address], 04/02/2019 17:25:15 04/02/20 19 04/02/2019 urina lysis , dipst ick, auto Unknown Analyte Negati ve Not Available [facility] Extended Services With [address] [place], [address], 04/02/2019 17:25:15 04/02/20 19 04/02/2019 urina lysis , dipst ick, auto Unknown Analyte Negati ve Not Available [facility] Extended Services With [address] [place], [address], 04/02/2019 17:25:15 04/02/20 19 04/02/2019 urina lysis , dipst ick, auto Unknown Analyte Clean Catch Not Available [facility] Extended Services With [address] [place], [address], 04/02/2019 17:25:15 04/02/20 19 04/02/2019 urina lysis , dipst ick, auto Unknown Analyte Automa edilberto Not Available [facility] Extended Services With [address] [place], [address], 04/02/2019 17:25:15 02/13/20 19 02/12/2019 urina lysis , dipst ick, auto Unknown Analyte Yellow Not Available [facility], [facility] Extended Services With [address] [place], [address], 02/12/2019 13:57:17 02/13/20 19 02/12/2019 urina lysis , dipst ick, auto Unknown Analyte Clear Not Available [facility], [facility] Extended Services With [address] [place], [address], 02/12/2019 13:57:17 02/13/20 19 02/12/2019 urina lysis , dipst ick, auto Unknown Analyte 1.020 Not Available [facility], [facility] Extended Services With [address] [place], [address], 02/12/2019 13:57:17 02/13/20 19 02/12/2019 urina lysis , dipst ick, auto Unknown Analyte 1.003 - 1.035 Not Available [facility] Extended Services With [address] [place], [address], 02/12/2019 13:57:17 02/13/20 19 02/12/2019 urina lysis , dipst ick, auto Unknown Analyte 5.0 Not Available [facility], [facility] Extended Services With [address] [place], [address], 02/12/2019 13:57:17 02/13/20 19 02/12/2019 urina lysis , dipst ick, auto Unknown Analyte 5.0 - 8.0 Not Available [facility] Extended Services With [address] [place], [address], 02/12/2019 13:57:17 02/13/20 19 02/12/2019 urina lysis , dipst ick, auto Unknown Analyte Negati ve Not Available [facility] Extended Services With [address] [place], [place], [address], 02/12/2019 13:57:17 02/13/20 19 02/12/2019 urina lysis , dipst ick, auto Unknown Analyte Negati ve Not Available [facility] Extended Services With [address] [place], [address], 02/12/2019 13:57:17 02/13/20 19 02/12/2019 urina lysis , dipst ick, auto Unknown Analyte Negati ve Not Available [facility] Extended Services With [address] [place], [address], 02/12/2019 13:57:17 02/13/20 19 02/12/2019 urina lysis , dipst ick, auto Unknown Analyte Negati ve Not Available [facility] Extended Services With [address] [place], [address], 02/12/2019 13:57:17 02/13/20 19 02/12/2019 urina lysis , dipst ick, auto Unknown Analyte Negtiv e Not Available [facility] Extended Services With [address] [place], [address], 02/12/2019 13:57:17 02/13/20 19 02/12/2019 urina lysis , dipst ick, auto Unknown Analyte Negati ve - Trace Not Available [facility] Extended Services With [address] [place], [address], 02/12/2019 13:57:17 02/13/20 19 02/12/2019 urina lysis , dipst ick, auto Unknown Analyte Normal Not Available [facility], [facility] Extended Services With [address] [place], [address], 02/12/2019 13:57:17 02/13/20 19 02/12/2019 urina lysis , dipst ick, auto Unknown Analyte Normal Not Available [facility], [facility] Extended Services With [address] [place], [address], 02/12/2019 13:57:17 02/13/20 19 02/12/2019 urina lysis , dipst ick, auto Unknown Analyte Negati ve Not Available [facility] Extended Services With [address] [place], [address], 02/12/2019 13:57:17 02/13/20 19 02/12/2019 urina lysis , dipst ick, auto Unknown Analyte Negati ve Not Available [facility] Extended Services With [address] [place], [address], 02/12/2019 13:57:17 02/13/20 19 02/12/2019 urina lysis , dipst ick, auto Unknown Analyte Normal Not Available [facility], [facility] Extended Services With [address] [place], [address], 02/12/2019 13:57:17 02/13/20 19 02/12/2019 urina lysis , dipst ick, auto Unknown Analyte Normal - 1mg/dl Not Available [facility] Extended Services With [address] [place], [address], 02/12/2019 13:57:17 02/13/20 19 02/12/2019 urina lysis , dipst ick, auto Unknown Analyte Negati ve Not Available [facility] Extended Services With [address] [place], [address], 02/12/2019 13:57:17 02/13/20 19 02/12/2019 urina lysis , dipst ick, auto Unknown Analyte Negati ve Not Available [facility] Extended Services With [address] [place], [address], 02/12/2019 13:57:17 02/13/20 19 02/12/2019 urina lysis , dipst ick, auto Unknown Analyte Negati ve Not Available [facility] Extended Services With [address] [place], [address], 02/12/2019 13:57:17 02/13/20 19 02/12/2019 urina lysis , dipst ick, auto Unknown Analyte Negati ve Not Available [facility] Extended Services With [address] [place], [address], 02/12/2019 13:57:17 02/13/20 19 02/12/2019 urina lysis , dipst ick, auto Unknown Analyte Clean Catch Not Available [facility] Extended Services With [address] [place], [address], 02/12/2019 13:57:17 02/13/20 19 02/12/2019 urina lysis , dipst ick, auto Unknown Analyte Automa edilberto Not Available [facility] Extended Services With [address] [place], [address], 02/12/2019 13:57:17 02/14/20 18 02/13/2018 urina lysis , dipst ick, auto Unknown Analyte Yellow Not Available [facility] Extended Services With [address] [place], [address], 02/13/2018 16:52:45 02/14/20 18 02/13/2018 urina lysis , dipst ick, auto Unknown Analyte Clear Not Available [facility] Extended Services With [address] [place], [address], 02/13/2018 16:52:45 02/14/20 18 02/13/2018 urina lysis , dipst ick, auto Unknown Analyte 1.025 Not Available [facility], [facility] Extended Services With [address], [place], [address], 02/13/2018 16:52:45 02/14/20 18 02/13/2018 urina lysis , dipst ick, auto Unknown Analyte 5.0 Not Available [facility] Extended Services With [address] [place], [address], 02/13/2018 16:52:45 02/14/20 18 02/13/2018 urina lysis , dipst ick, auto Unknown Analyte Negati ve Not Available [facility] Extended Services With [address] [place], [address], 02/13/2018 16:52:45 02/14/20 18 02/13/2018 urina lysis , dipst ick, auto Unknown Analyte Negati ve Not Available [facility] Extended Services With [address], [place], [address], 02/13/2018 16:52:45 02/14/20 18 02/13/2018 urina lysis , dipst ick, auto Unknown Analyte Negtiv e Not Available [facility] Extended Services With [address] [place], [address], 02/13/2018 16:52:45 02/14/20 18 02/13/2018 urina lysis , dipst ick, auto Unknown Analyte Normal Not Available [facility] Extended Services With [address] [place], [address], 02/13/2018 16:52:45 02/14/20 18 02/13/2018 urina lysis , dipst ick, auto Unknown Analyte Negati ve Not Available [facility] Extended Services With [address], [place], [address], 02/13/2018 16:52:45 02/14/20 18 02/13/2018 urina lysis , dipst ick, auto Unknown Analyte Normal Not Available [facility] Extended Services With [address] [place], [address], 02/13/2018 16:52:45 02/14/20 18 02/13/2018 urina lysis , dipst ick, auto Unknown Analyte Negati ve Not Available [facility] Extended Services With [address], [place], [address], 02/13/2018 16:52:45 02/14/20 18 02/13/2018 urina lysis , dipst ick, auto Unknown Analyte Negati ve Not Available [facility] Extended Services With [address], [place], [address], 02/13/2018 16:52:45 02/14/20 18 02/13/2018 urina lysis , dipst ick, auto Unknown Analyte Clean Catch Not Available [facility] Extended Services With [address] [place], [address], 02/13/2018 16:52:45 02/14/20 18 02/13/2018 urina lysis , dipst ick, auto Unknown Analyte Automa edilberto Not Available [facility] Extended Services With [address] [place], [address], 02/13/2018 16:52:45 01/10/20 18 01/09/2018 urina lysis , dipst ick, auto Unknown Analyte Yellow Not Available [facility] Extended Services With [address] [place], [address], 01/09/2018 16:11:32 01/10/20 18 01/09/2018 urina lysis , dipst ick, auto Unknown Analyte Clear Not Available [facility] Extended Services With [address] [place], [address], 01/09/2018 16:11:32 01/10/20 18 01/09/2018 urina lysis , dipst ick, auto Unknown Analyte 1.020 Not Available [facility] Extended Services With [address], [place], [address], 01/09/2018 16:11:32 01/10/20 18 01/09/2018 urina lysis , dipst ick, auto Unknown Analyte 5.0 Not Available [facility] Extended Services With [address] [place], [address], 01/09/2018 16:11:32 01/10/20 18 01/09/2018 urina lysis , dipst ick, auto Unknown Analyte Negati ve Not Available [facility] Extended Services With [address] Kiran, [place], [address], 01/09/2018 16:11:32 01/10/20 18 01/09/2018 urina lysis , dipst ick, auto Unknown Analyte Negati ve Not Available [facility] Extended Services With [address] [place], [address], 01/09/2018 16:11:32 01/10/20 18 01/09/2018 urina lysis , dipst ick, auto Unknown Analyte Negtiv e Not Available [facility] Extended Services With [address] [place], [address], 01/09/2018 16:11:32 01/10/20 18 01/09/2018 urina lysis , dipst ick, auto Unknown Analyte Normal Not Available [facility], [facility] Extended Services With [address] [place], [address], 01/09/2018 16:11:32 01/10/20 18 01/09/2018 urina lysis , dipst ick, auto Unknown Analyte Negati ve Not Available [facility] Extended Services With [address] [place], [address], 01/09/2018 16:11:32 01/10/20 18 01/09/2018 urina lysis , dipst ick, auto Unknown Analyte Normal Not Available [facility], [facility] Extended Services With [address] [place], [address], 01/09/2018 16:11:32 01/10/20 18 01/09/2018 urina lysis , dipst ick, auto Unknown Analyte Negati ve Not Available [facility] Extended Services With [address] [place], [address], 01/09/2018 16:11:32 01/10/20 18 01/09/2018 urina lysis , dipst ick, auto Unknown Analyte Negati ve Not Available [facility] Extended Services With [address] [place], [address], 01/09/2018 16:11:32 01/10/20 18 01/09/2018 urina lysis , dipst ick, auto Unknown Analyte Clean Catch Not Available [facility] Extended Services With [address] [place], [address], 01/09/2018 16:11:32 01/10/20 18 01/09/2018 urina lysis , dipst ick, auto Unknown Analyte Automa edilberto Not Available [facility] Extended Services With [address] [place], [address], 01/09/2018 16:11:32 Result Notes None recorded. 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 Medical Equipment None Reported. Allergies Allergen ID Allergen Name Allergen Category Reaction Reaction Severity Criticality Documentation Date Start Date Code Code System Note Provider Name and Address Organization Details Recorded Time 428716 Demerol medicatio n Not available Not available Not available 01/09/2018 72984 1 RxNorm [facility] 8 16:09:19 Medications Name Sig Start Date Stop Date Status Note LastModified by Organization Details LastModified Time Flomax 0.4 mg capsule 02/13 completed Not Available Not Available Not Available gabapenti n 600 mg tablet active Medicati on Descript ion: gabapent in; Route:or al; refills: 0 Not Available Not Available Not Available levothyro xine 88 mcg tablet active Medicati on Descript ion: levothyr oxine; Route:or al; refills: 0 Not Available Not Available Not Available Cipro 500 mg tablet Take 1 tablet twice a day by oral route for 30 days. 02/13 completed Not Available Not Available Not Available doxazosin 2 mg tablet Daily active Duration : 30 days;Jesus quency: daily;Me dication Descript ion: doxazosi n; Dosage:1 ; Route:or al; refills: 12; Quantity :30 tablet Not Available Not Available Not Available Uroxatral 10 mg tablet,ex tended release Take 1 tablet(s ) every day by oral route for 90 days. active Not Available Not Available No t Available metoprolo l tartrate active Medicati on Descript ion: metoprol ol; refills: 0 Not Available Not Available Not Available Proventil HFA active Not Available Not Available Not Available Advair HFA 115 mcg-21 mcg/actua tion aerosol inhaler active Medicati on Descript ion: fluticas one-salm eterol; Route:in halation ; refills: 0 Not Available Not Available Not Available Voltaren 1 % topical gel APPLY 2 GRAM TO THE AFFECTED AREA(S) BY TOPICAL ROUTE 4 TIMES PER DAY active Not Available Not Available No t Available Vitals Date Recorded Body height Body mass index (BMI) Body weight Systolic And Diastolic Provider Name and Address Organization Details Last Updated DateTime 10/08/2019 172.72 cm 28.1 kg/m2 17481.59 g 138/79 mm[Hg] [facility] 10/08/2019 15:44:30 Date Recorded Body height Body mass index (BMI) Body weight Systolic And Diastolic Provider Name and Address Organization Details Last Updated DateTime 01/09/2018 172.72 cm 28.1 kg/m2 13040.59 g 141/82 mm[Hg] [facility] 01/09/2018 16:09:09 Date Recorded Body height Body mass index (BMI) Body weight Provider Name and Address Organization Details Last Updated DateTime 02/12/2019 172.72 cm 28.1 kg/m2 82733.59 g [facility] 02/12/2019 13:57:01 Date Recorded Body height Body mass index (BMI) Body weight Systolic And Diastolic Provider Name and Address Organization Details Last Updated DateTime 02/13/2018 172.72 cm 12.9 kg/m2 25566.35 g 138/80 mm[Hg] [facility] 02/13/2018 16:51:32 Date Recorded Body height Body mass index (BMI) Body weight Provider Name and Address Organization Details Last Updated DateTime 04/02/2019 172.72 cm 28.1 kg/m2 03034.59 g [facility] 04/02/2019 17:24:11 Social History Question Answer Notes LastModified by Organizat ion Details LastModified Time Tobacco Smoking Status Never Smoker Blaire Burgos [facility] 01/09/2018 16:09:38 How Much Tobacco Do You Chew? None [email or web address] Information not available 10/08/2019 Marital Status [email or web address] Informatio n not available 01/09/2018 What Was The Date Of Your Most Recent Tobacco Screening? 04/02/2019 Information n ot available 11/10/2019 Sex: Unknown Functional Status Question Answer Note LastModified by Organization D etails LastModified Time What is your level of alcohol consumption? None [email or web address] Information not available 01/09/2018 Mental Status None recorded. Family History Relationship Description Onset Age of this Age Resolved Age Notes LastModified by Organization Details LastModified Time Unspecified Relation Family history of malignant neoplasm [email or web address] Not available 2017 16:09:32 Medical History Condition Response Arthritis Y False Teeth Y Chronic Obstructive Pulmonary Disease Y Glaucoma Y Past Encounters Encounter ID Performer Location Encounter Start Date Encounter Closed Date Diagnosis/Indication Diagnosis SNOMED-CT Code Diagnosis ICD10 Code Diagnosis Note [id number] JERAD PARHAM MD [facility] [address] [address] 01/09/2018 15:03:52 01/16/2018 10:10:20 Prostatitis 3845199 N41.9 [id number] JERAD PARHAM MD [facility] [address] [place] [address] 02/13/2018 15:41:08 02/24/2018 09:14:08 Benign prostatic hyperplasia with outflow obstruction 370312365 N40.1 Inguinal pain 729010835 R10.2 [id number] JERAD PARHAM MD [facility] [address],[place] [address] 02/12/2019 13:32:55 02/26/2019 11:33:43 Benign prostatic hyperplasia with outflow obstruction 621372764 N40.1 [id number] JERAD PARHAM MD [facility] [address] [place] [address] 04/02/2019 13:51:48 04/13/2019 08:20:41 Benign prostatic hyperplasia with outflow obstruction 009215086 N40.1 [id number] JERAD PARHAM MD [facility] [address] [facility],[place] [address] 10/08/2019 13:02:06 10/08/2019 13:33:59 Benign prostatic hyperplasia with outflow obstruction 086701335 N40.1 Health Concerns Section Related Observation LastModified by Organization Detai ls LastModified Time None Recorded Concern Status LastModified by Organization Details LastModified Time None Recorded Advance Directives Directive None Recorded Payers Insurance Date Sequence Insurance Name Policy Number Policy Malik Covered Member ID Malik Member ID Guarantor Name 03/28/2020 2 [employer] (MEDICARE SUPPLEMENT) Erik Rey [id number] Erik Bangura Candido 03/28/2020 1 [place] Erik Rey [id number] rEik Bangura Candido Notes Date Note Type Note Provider Name and Address Organization Details Recorded Time 01/09/2018 text/html 72-year-old male in the office for acute evaluation of irritative voiding symptoms. He voids every 2 hours with nocturia one to 2 times nightly. He complains of suprapubic pain and pressure with radiation into the groin area. He has variable urinary hesitancy with occasional urgency. No hematuria or dysuria. He has prior history of right epididymitis and BPH. JERAD PARHAM MD [address] [place] [address], [address], [facility] 01/15/2018 19:21:32 02/13/2018 text/html 72-year-old male in the office for follow-up evaluation of irritative voiding symptoms. He continues to have right groin pain also. No current hesitancy, urgency, hematuria, dysuria. JERAD PARHAM MD [address] [place] [address], [address], [facility] 02/23/2018 15:50:22 02/12/2019 text/html 73-year-old male in the office for follow-up evaluation of lower urinary tract symptoms. He voids every 2 hours with nocturia 3 times nightly. He denies hematuria or dysuria. He denies urgency. He does have occasional hesitancy. He continues to have right groin pain. JERAD PARHAM MD [address] [place] [address], [address], [facility] 02/26/2019 10:54:58 04/02/2019 text/html 73-year-old male in the office for follow-up evaluation of benign prostatic hyperplasia with lower urinary tract symptoms. He was initiated on Uroxatral. Symptoms are improved. He voids every 2 hours with nocturia every 3 hours. He denies hematuria or dysuria. He complains of right groin pain. JERAD PARHAM MD [address] [place], [address], [facility] 04/12/2019 15:44:45 10/08/2019 text/html 74-year-old male in the office for follow-up evaluation of benign prostatic hyperplasia with lower urinary symptoms. He continues on Uroxatral. He voids every 2-3 hours with nocturia 2-3 times nightly. He denies hesitancy. No hematuria or dysuria. He continues to have right groin pain intermittently. JERAD PARHAM MD [address] [place], [address], [facility] 10/11/2019 22:00:28
--- OUTSIDE RECORDS SUMMARY | 2025-04-16 11:30 | XMS_ITS | Data Portability ---
Author Organization [facility] ADMIN Address [address] [place] [address] Assessment No assessment recorded. Plan of Treatment [...] Organization Details Recorded Time Sensorineural hearing loss 21004221 Active 2022 DANO FAITH, AUD [address] [facility], [place], [address] , [facility] & [place] 3 14:40:32 Problem Notes None recorded. Medical [...] SNOMED-CT Code Diagnosis ICD10 Code Diagnosis Note [id number] KELSEY GARCIA [facility] [place] [address] 8 05/29/2023 14:22:19 05/29/2023 14:34:04 Sensorineural hearing loss 86714509 H90.3 [id number] KELSEY GARCIA [facility] [place] [address] 06/12/2023 10:04:12 06/12/2023 10:05:21 Sensorineural hearing loss 94857055 H90.3 [id number] KELSEY GARCIA [facility] [place] [address] 07/08/2024 14:50:14 07/08/2024 15:07:31 Sensorineural hearing loss 87966361 H90.3 Health Concerns Section Related Observation LastModified by Organization Detai ls LastModified Time None Recorded Concern Status LastModified by Organization Details LastModified Time None Recorded Advance Directives Directive None Recorded Payers Insurance Date Sequence Insurance Name Policy Number Policy Malik Covered Member ID Malik Member ID Guarantor Name 07/08/2024 1 [employer] (MEDICARE REPLACEMENT/A DVANTAGE - PPO) Erik Rey [id number] Erik Rey 07/08/2024 1 [place] Erik Rey [id number] Erik Rey 07/08/2024 1 [employer] - [employer] - PLAN F (MEDICARE SUPPLEMENT) Erik Rey [id number] Erik Rey Notes Date Note Type Note Provider Name and Address Organization Details Recorded Time 05/29/2023 text/html Patient was seen today for a hearing aid service. Cleaned and adjusted hearing aids this date. KELSEY GARCIA [address], [place], [address], [place] [facility] & [place] 05/29/2023 14:40:48 06/12/2023 text/html Patient was seen today for a hearing aid service. Cleaned and adjusted hearing aids this date. DANO FAITH, AUD [address], [place], [address], [place] [facility] & [place] 06/12/2023 10:05:44 07/08/2024 text/html Patient was seen today for a hearing aid service. Cleaned and adjusted hearing aids this date. DANO FAITH, AUD [address] , [place], [address], [place] [facility] & [place] 07/08/2024 15:11:04
--- OUTSIDE RECORDS SUMMARY | 2025-04-16 11:30 | XMS_ITS | Clinical Summary ---
Author Organization [facility] Address [address] [place] [address] Care Team Providers Care Circulation Analyst Name Role Phone Gennaro Salamanca MD Primary Care Provider [phone] Allergies Active Allergy Reactions Criticality Noted Date Comments Meperidine Itching Medium 07/24/2024 Medications albuterol 108 (90 Base) MCG/ACT inhaler Inhale 2 puffs 4 (four) times a day. Active alfuzosin (Uroxatral) 10 MG 24 hr tablet Take 1 tablet (10 mg) by mouth 1 (one) time each day. Do not crush, chew, or split. Active apixaban (Eliquis) 2.5 MG tablet Take 1 tablet (2.5 mg) by mouth 2 (two) times a day. Active Dorzolamide HCl-Timolol Mal PF 2-0.5 % solution Administer into affected eye(s). Active furosemide (Lasix) 40 MG tablet Take 1 tablet (40 mg) by mouth 1 (one) time each day. Active ipratropium-alb uterol (Duo-Neb) 0.5-2.5 mg/3 mL nebulizer solution Take 3 mL by nebulization every 6 (six) hours if needed for wheezing. Active latanoprost (Xalatan) 0.005 % ophthalmic solution 1 drop every night. Active levothyroxine (Synthroid, Levoxyl) 125 MCG tablet Take 1 tablet (125 mcg) by mouth 1 (one) time each day before breakfast. Active metoprolol-hydr oCHLOROthiazide (Lopressor HCT) 100-25 MG tablet Take 1 tablet by mouth 1 (one) time each day. 1/2 TAB DAILY Active spironolactone (Aldactone) 12.5 MG split tablet Take 1 split tablet (12.5 mg) by mouth 2 (two) times a day. Active Fluticasone-Ume clidin-Vilant (Trelegy Ellipta) 100-62.5-25 MCG/ACT aerosol powder Inhale 100 mg 1 (one) time each day. Active Active Problems Problem Noted Date Diagnosed Date Stage 3 chronic kidney disease 05/29/2024 Longstanding persistent atrial fibrillation 02/2024 Essential hypertension 05/29/2024 Anemia in chronic kidney disease 05/29/2024 Mixed hyperlipidemia 05/29/2024 Social History Tobacco Use Types Packs/Day Years Used Date Smoking Tobacco: Never Smokeless Tobacco: Never Tobacco Cessation:Counseling Given: Not Answered Alcohol Use Standard Drinks/Week Comments Never 0 (1 standard drink = 0.6 oz pur e alcohol) Sex and Gender Information Value Date Recorded Sex Assigned at Not on file Legal Sex Male 7:44 PM EDT Gender Identity Not on file Sexual Orientation Not on file Last Filed Vital Signs Vital Sign Reading Time Taken Comments Blood Pressure 130/78 07/24/2024 9:26 AM EDT Pulse 54 07/24/2024 9:26 AM EDT Temperature 36.7 C (98 F) 07/24/2024 9:26 AM EDT Respiratory Rate 18 07/24/2024 9:26 AM EDT Oxygen Saturation 97% 07/24/2024 9:26 AM EDT Inhaled Oxygen Concentration - - Weight 83.3 kg (183 lb 9.6 oz) 07/24/2024 9:26 A M EDT Height 170.2 cm (5' 7 ) 07/24/2024 9:26 AM EDT Body Mass Index 28.76 07/24/2024 9:26 AM EDT Plan of Treatment Health Maintenance Due Date Last Done Comments [facility]-Depression Screening 1944 [facility]-Medicare Annual Wellness (AWV) 1944 [facility]-Infant/Child/Adol SDOH Screenings 1944 [facility]- SDOH Screenings 1962 [facility]-Adult SDOH Screenings 1962 [facility]-DTaP,Tdap,and Td Vaccine s (1 - Tdap) 1963 [facility]-Pneumococcal Vaccine: 50 + Years (1 of 1 - PCV) 1994 [facility]-Zoster Vaccines (1 of 2) 1994 [facility]-RSV Vaccine: 60+ Years o r (1 - 1-dose 75+ series) 2019 [id number] Vaccine ( - 2023- season) 2024 08/10/2021, 11/15/2020, 10/19/2020 [facility]-Influenza Vaccine (#1) 2025 [facility]-Obesity Intervention Completed 024, 05/29/2024 HPV Vaccines Aged Out No longer eligi ble based on patient's age to complete this topic [facility]-HIB Vaccines Aged Out No longer e ligible based on patient's age to complete this topic [facility]-Hepatitis A Vaccines Aged Out No longer eligible based on patient's age to complete this topic [facility]-IPV Vaccines Aged Out No longer e ligible based on patient's age to complete this topic [facility]-Rotavirus Vaccines Aged Out No lo nger eligible based on patient's age to complete this topic [place] [address] HUMAN Care Teams Circulation Analyst Relationship Specialty Start Date End Date Gennaro Salamanca MD [address] [place] [address] PCP - General 05/14/24
--- OUTSIDE RECORDS SUMMARY | 2025-04-16 11:30 | XMS_ITS | Clinical Summary ---
Author Organization [facility] Address [address] [place] [address] Care Team Providers Care Game Manager Name Role Phone Gennaro Salamanca MD Primary Care Provider [phone] Allergies No known active allergies Medications testosterone (ANDROGEL) 50 MG/5GM (1%) gel gel 05/01/2020 Active levothyroxine (SYNTHROID, LEVOTHROID) 112 MCG tablet 05/14/2020 Active alfuzosin (UROXATRAL) 10 MG 24 hr tablet 05/19/2020 Act yordan metoprolol-hydro chlorothiazide (LOPRESSOR HCT) 100-25 MG per tablet 05/18/2020 Active TRELEGY ELLIPTA 100-62.5-25 MCG/INH aerosol powder 05/09/2020 Active meloxicam (MOBIC) 15 MG tablet 05/03/2020 Active traMADol (ULTRAM) 50 MG tablet 05/11/2020 Active dorzolamide-patricia lol (COSOPT) 22.3-6.8 MG/ML ophthalmic solution 03/08/2020 Active latanoprost (XALATAN) 0.005 % ophthalmic solution 04/04/2020 Active ASPIRIN 81 PO Take by mouth. Active gabapentin (NEURONTIN) 600 MG tablet Take 600 mg by mouth 3 (Three) Times a Day. Active albuterol sulfate HFA 108 (90 Base) MCG/ACT inhaler 12/06/2020 Act yordan Active Problems No known active problems Family History Medical History Relation Name Comments No Known Problems Father No Known Problems Mother Relation Name Status Comments Father Mother Social History Tobacco Use Types Packs/Day Years Used Date Smoking Tobacco: Former Cigarettes Q uit: 1998 Smokeless Tobacco: Never Alcohol Use Standard Drinks/Week Comments Not Currently 0 (1 standard drink = 0.6 oz pur e alcohol) Abuse Screen Answer Date Recorded Unsafe at Home or Work/School Not on file Feels Threatened by Someone? Not on file 08/2023 Does Anyone Keep You from Co ntacting Others or Doint Things Outside the Home? Not on file 07/04/2023 Physical Sign of Abuse Present Not on file 1 Housing Stability Answer Date Recorded Current Living Arrangements Not on file 06/23 Potentially Unsafe Housing Conditions Not on lashon e 07/04/2023 Family and Community Support Answer Syed e Recorded Help with Day-to-Day Activities Not on file 07/04/2023 Lonely or Isolated Not on file 07/04/2023 Employment Answer Date Recorded Do you want help finding or keeping work or a danielle b? Not on file 07/04/2023 Disabilities Answer Date Recorded Concentrating, Remembering, or Making Decisions Difficulty Not on file 07/04/2023 Doing Errands Independently Difficulty Not on fi le 07/04/2023 Education Answer Date Recorded Help with school or training? Not on file Preferred Language Not on file 07/04/2023 Sex and Gender Information Value Date Recorded Sex Assigned at Not on file Legal Sex Male 1:28 PM EDT Gender Identity Not on file Sexual Orientation Not on file Last Filed Vital Signs Vital Sign Reading Time Taken Comments Blood Pressure 150/74 12/07/2020 1:27 PM EDT Pulse 59 12/07/2020 1:27 PM EDT Temperature - - Respiratory Rate - - Oxygen Saturation 98% 07/18/2020 3:48 PM EDT Inhaled Oxygen Concentration - - Weight 86.9 kg (191 lb 9.6 oz) 12/07/2020 1:27 P M EDT Height 171.5 cm (5' 7.52 ) 12/07/2020 1:27 PM ED T Body Mass Index 29.55 12/07/2020 1:27 PM EDT Plan of Treatment Health Maintenance Due Date Last Done Comments TDAP/TD VACCINES (1 - Tdap) 1964 Pneumococcal Vaccine 50+ (1 of 1 - PCV) 1994 ZOSTER VACCINE (1 of 2) 1994 RSV Vaccine - Adults (1 - 1- dose 75+ series) 2019 ANNUAL PHYSICAL 05/25/2020 COVID-19 Vaccine (2023- season) 2024, 10/19/2020 INFLUENZA VACCINE 06/23/2025 Insurance MEDICARE A & B AETNA [facility] Care Teams Game Manager Relationship Specialty Start Date End Date Gennaro Salamanca MD [address] [place] [address] [place] [address] PCP - General Family Medicine 05/11/20
--- NOTE | 2025-04-16 11:47 | ECG_ITS ---
APPROVED REPORT Exam: Resting ECG HR:59 bpm ECG Measurements Heart Rate 59 AXES ME 199 P 78 QRSd 87 QRS 66 QT 386 T 53 QTc 385 Conclusion SINUS BRADYCARDIA BORDERLINE ECG UNCONFIRMED REPORT Electronically signed by : Eleuterio Moy, 04/16/2025 16:46:16
--- NOTE | 2025-04-16 11:49 | XR_ITS ---
FINAL REPORT CLINICAL HISTORY: Shortness of breath, crackles at bases, former smoker COMPARISON: 01/20/2025 FINDINGS: CHEST 2 VIEW No acute pulmonary density is evident. There is no evidence of effusion or other pleural disease. The mediastinum has a normal appearance. The cardiac silhouette is unremarkable. IMPRESSION: Unremarkable chest exam. Reviewed, Interpreted and Dictated by Wally Gurrola MD Transcribed by Mamie Kilgore Authenticated and [facility]
[2025-04-16 11:57] LABS: Albumin Level 3.4 g/dl (3.5-5.0); Chloride 96 mmol/L (98-107); Potassium 3.4 mmoL/L (3.5-5.1); Sodium 135 mmol/L (136-145)
[2025-04-16 12:00] LABS: Alanine Aminotransferase 45 U/L (12-78); Albumin/Globulin Ratio 1.0 (1.1-1.8); Alkaline Phosphatase 55 U/L (38-126); Anion Gap 9.4 mEq/L (5-15); Aspartate Amino Transferase 40 U/L (17-59); Bilirubin,Total 0.9 mg/dl (0.2-1.3); Blood Urea Nitrogen 29 mg/dl (9-20); Calcium 9.5 mg/dl (8.4-10.2); Carbon Dioxide 33 mmol/L (22.0-30.0); Creatinine Clearance Estimated 39 mL/min (50-200); Creatinine,Serum 1.80 mg/dl (0.66-1.25); Estimated Glomerular Filt Rate 36 ml/min (>60); GFR (African American) 44 ML/MIN (>60); Globulin 3.4 g/dL (1.3-3.2); Glucose 121 mg/dl (74-100); Magnesium 1.3 mg/dl (1.6-2.3); Total Protein,Serum 6.8 g/dl (6.3-8.2)
[2025-04-16 12:03] LABS: Hematocrit 42.7 % (42.0-52.0); Hemoglobin 13.7 g/dL (14.1-18.0); Immature Granulocytes % 0.8 %; Mean Corpuscular HGB Conc 32.1 g/dL (31.8-35.4); Mean Corpuscular Hemoglobin 29.7 pg (27.0-31.2); Mean Corpuscular Volume 92.4 fl (80-94); Nucleated Red Blood Cells % 0 %; Platelet Count 253 K/mm3 (142-424); Red Blood Count 4.62 M/mm3 (4.60-6.20); Red Cell Distribution Width-SD 48.0 fL; White Blood Count 8.8 K/mm3 (4.8-10.8)
[2025-04-16 12:09] LABS: INR 1.08 (0.9-1.1); Prothrombin Time 11.9 seconds (10.1-12.5)
[2025-04-16 12:11] LABS: NT Pro Brain Natriuretic Pep. 269 pg/mL (0-450)
[2025-04-16 12:13] LABS: Troponin I 0.02 ng/ml (0.00-0.034)
[2025-04-16 12:23] LABS: D-Dimer 0.77 ug/mL (0.0-0.5)
[2025-04-16 12:36] LABS: Microscopic, Urine URINE MICROSCOPIC (MICROSCOPIC)
[2025-04-16 12:40] LABS: Bilirubin,Urine Negative (Negative); Color,Urine YELLOW (Yellow); Glucose,Urine (UA) Negative (Negative); Ketones,Urine Negative (Negative); Leukocyte Esterase,Urine Negative (Negative); PH,Urine 6.0 (5.0-8.5); Protein,Urine Negative (Negative); Specific Gravity, Urine 1.015 (1.005-1.030); Urobilinogen,Urine 0.2 EU/dl (0.2)
[2025-04-16 12:58] LABS: Hepatitis C Ab Qual. W/ RFX NEGATIVE (Negative)
[2025-04-16 13:12] LABS: Bacteria,Urine Trace /lpf; Squamous Epithelial Cell,Urine Occasional #/hpf (0-5)
[2025-04-16 14:31] LABS: Troponin I 0.02 ng/ml (0.00-0.034)
== END 2025-04-16 15:19 | disposition home or self-care (01) ==
PROVIDERS: Emergency Provider Emergency Medicine; PCP Family Medicine
DX: R06.01 Orthopnea (principal); I11.0 Hypertensive heart disease with heart failure; I50.9 Heart failure, unspecified; E78.5 Hyperlipidemia, unspecified; J44.9 Chronic obstructive pulmonary disease, unspecified; Z87.891 Personal history of nicotine dependence
CPT/HCPCS: 71046; 80053; 81001; 83735; 83880; 84484; 85025; 85378; 85610; 86803; 87389; 93005; 99284

== ENCOUNTER 2025-04-30 12:42 | Outpatient (CLI) | payer MEDICARE, OTHER, SELFPAY ==
--- OUTSIDE RECORDS SUMMARY | 2025-04-30 12:45 | XMS_ITS | Clinical Summary ---
Author Organization [facility] Address [address] [place] [address] Care Team Providers Care Lumpia Wrapper Maker Name Role Phone Gennaro Salamanca MD Primary Care Provider [phone] Allergies Active Allergy Reactions Criticality Noted Date [...] Screening 1944 [facility]-Medicare Annual Wellness (AWV) 1944 [facility]-/Child/Adol SDOH Screenings 1944 [facility]- SDOH Screenings 1962 [facility]-Adult SDOH Screenings 1962 [facility]-DTaP,Tdap,and Td Vaccine s (1 - Tdap) 1963 [facility]-Pneumococcal Vaccine: 50 + Years (1 of 1 - PCV) 1994 [facility]-Zoster Vaccines (1 of 2) 1994 [facility]-RSV Vaccine: 60+ Years o r (1 - 1-dose 75+ series) 2019 [id number] Vaccine ( - 2023- season) 2024 08/10/2021, [...] age to complete this [place] [address] HUMAN Care Teams Lumpia Wrapper Maker Relationship Specialty Start Date End Date Gennaro Salamanca MD [address] [place] [address] PCP - General 05/14/24
--- OUTSIDE RECORDS SUMMARY | 2025-04-30 12:45 | XMS_ITS | Clinical Summary ---
Author Organization [facility] Address [address] [place] [address] Care Team Providers Care Supervisor Jewelry Department Name Role Phone Gennaro Salamanca MD Primary Care Provider [phone] Allergies No known active allergies Medications testosterone [...] 06/23/2025 Insurance MEDICARE A & B AETNA [facility] Care Teams Supervisor Jewelry Department Relationship Specialty Start Date End Date Gennaro Salamanca MD [address] [place] [address] [place] [address] PCP - General Family Medicine 05/11/20
--- NOTE | 2025-04-30 13:45 | CA_ITS ---
APPROVED REPORT EXAM: Comprehensive 2D, Doppler, and color-flow Echocardiogram Kitchen Cleaner: ADAMS Sibley, RVS Ht: 5 ft 7 in Wt: 186lbs BSA: 1.96 BP: 140/62 mmHg Indications: Dyspnea, Afib, CHF, CKD 2D Dimensions IVSd 1.12 cm LVEF (Visual) 23.20 % PWd 0.91 cm LA Volume 74.10 mL LVDd 3.91 cm LA Volume Index 36.90 mL/m2 (M/F) 16-34 LVDs 3.50 cm M-Mode Dimensions RVDd 1.23 cm (0.9-2.6) LA Diam 2.66 cm (1.9-4.0) LVDd 5.37 cm (3.5-5.7) LVDs 2.76 cm (3.5-5.7) IVSd 0.68 cm (0.6-1.1) PWd 1.01 cm (0.6-1.1) EF (Teich) 79.60% FS 48.60% EDV (Teich) 139.50 mL ESV (Teich) 28.50 mL LV Diastology E Decel Time 253 (160-240 msec) E/A Ratio 0.80 Aortic Valve AI PHT 591.00 ms Mitral Valve MV E Max George. 106.0 (40-130 cm/s) MV A Velocity 132.0 (40-130 cm/s) E/A Ratio 0.80 MV PHT 74.0 ms Tricuspid Valve TR P. Velocity 241.00 cm/s RAP Estimate 10.00 mmHg RVSP 33.30 mmHg Left Ventricle The left ventricle is normal size. Left ventricular systolic function is normal. The left ventricular ejection fraction is within the normal range. There is increased left ventricular wall thickness. There is normal LV segmental wall motion. Grade 2 diastolic dysfunction is present. LVEF is 55% Right Ventricle The right ventricle is normal size. The right ventricular systolic function is normal. Atria The left atrium is mildly dilated. The right atrium is mildly dilated. There is no color Doppler evidence of interatrial shunt. Aortic Valve The aortic valve is mildly thickened. There is no hemodynamically significant aortic valvular stenosis. Mild aortic regurgitation is present. Mitral Valve The mitral valve is normal in structure. No evidence of mitral valve stenosis. Mild mitral regurgitation is present. Tricuspid Valve The tricuspid valve leaflets are thin and pliable. Mild tricuspid regurgitation. RVSP is 20-25 mmHg. Pulmonic Valve The pulmonary valve is grossly normal in structure. Trace pulmonic valve regurgitation is present. Great Vessels The aortic root is normal in size. IVC is normal in size and collapses >50% with inspiration. Pericardium There is no pericardial effusion. Other Information Study Quality: Fair Conclusion Normal biventricular systolic function. Grade 2 diastolic dysfunction. Mild biatrial dilation. Mild AI, mild MR, mild TR. Electronically signed by : Elisha Clifton MD 04/30/2025 14:46:46
[2025-04-30] MEDS: IOPAMIDOL-370 (76%);100ML BOTTLE 75 ML IV (13:51)
[2025-04-30] MEDS: SODIUM CHLORIDE 0.9% 10ML SYR (RAD ONLY) 10 ML IV (13:51)
--- NOTE | 2025-04-30 15:00 | CT_ITS ---
FINAL REPORT TECHNIQUE: The patient was injected with IV contrast. Axial images were obtained of the chest by computed tomography. Precontrast images were also obtained. This study was performed with techniques to keep radiation doses as low as reasonably achievable (ALARA). Individualized dose reduction techniques using automated exposure control or adjustment of mA and/or kV according to the patient's size were employed. CLINICAL HISTORY: Shortness of breath COMPARISON: 08/19/2024 FINDINGS: CT OF THE CHEST WITH AND WITHOUT CONTRAST: On the pre infusion images, there are calcified right paratracheal and right hilar lymph nodes. There are dense coronary artery calcifications. 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 Heart size is normal. There is no pericardial or pleural effusion identified. There is chronic scarring in the lung bases. Calcified granuloma in the left lung base. Limited images of the upper abdomen demonstrate a benign cyst in the lateral segment of the left lobe of the liver measuring 1.4 cm. There are other smaller lesions seen scattered in both lobes of the liver. IMPRESSION: Chronic changes in the lungs without acute cardiopulmonary process. Reviewed, Interpreted and Dictated by Wiliam Hilario MD Transcribed by Sarita Taylor Authenticated and [facility]
== END 2025-04-30 23:59 | disposition home or self-care (01) ==
LOC: RT 12:44
PROVIDERS: PCP Family Medicine; Visit Provider Physician Assistant
DX: I08.3 Combined rheumatic disorders of mitral, aortic and tricuspid valves (principal); I20.89 Other forms of angina pectoris; I48.91 Unspecified atrial fibrillation; I50.9 Heart failure, unspecified; N18.9 Chronic kidney disease, unspecified
CPT/HCPCS: 71270; 93306; Q9967

== ENCOUNTER 2025-08-18 09:38 | Outpatient (CLI) | payer MEDICARE, OTHER, SELFPAY ==
--- OUTSIDE RECORDS SUMMARY | 2025-08-18 09:42 | XMS_ITS | Data Portability ---
Author Organization [place] [facility] Address [address] [place] [address] Care Team Providers Care Authorization Representative Name Role Phone ZARA BOBO Primary Care Provider Assessment Encounter Date Assessment Date Assessment LastModified by Organization Details LastModified Time 01/09/2018 01/09/2018 Examination and symptoms consistent with probable prostatitis. We discussed the diagnosis and treatment options. Antibiotics and alpha misty prescribed. [email or web address] Not available 01/15/2018 19:20:58 02/13/2018 02/13/2018 No palpable abnormality by examination. [email or web address] Not available 02/23/2018 15:49:28 02/12/2019 02/12/2019 Trial of alpha-misty therapy. Not available 02/26/2019 10:54:30 04/02/2019 04/02/2019 Continue Uroxatral. PSA good at 0.94. [email or web address] Not available 04/12/2019 15:44:29 10/08/2019 10/08/2019 Continue Uroxatral. [email or web address] Not available 10/11/2019 21:59:52 Plan of Treatment Reminders Order Date Submit Date Provider Last Modified By Organization Details Last Modified Time Details Appointments None recorded. Lab urinalysis , dipstick, auto 2019 020 [email or web address] [id number] [facility] [place] [facility], [address] , [address], [place], [address], 0 21:59:53 PSA, serum or plasma 2018 019 [facility] (Lab Registration) , [address], [place], [address], 9 16:16:38 urinalysis , dipstick, auto 2018 019 [email or web address] 4 [facility], [address], [address], [place], [address], 9 15:43:01 urinalysis , dipstick, auto 2018 019 4 [facility], [address], [address], [place], [address], 9 14:52:03 urinalysis , dipstick, auto 2017 018 [email or web address] 4 [facility], [address], [address], [place], [address], 8 15:49:37 urinalysis , dipstick, auto 2017 018 4 [facility], [address], [address], [place], [address], 8 19:20:34 Referral None recorded. Procedures None recorded. Surgeries None recorded. Imaging None recorded. Medication Orders Uroxatral 10 mg tablet,ext ended release [address] [facility] [employer] [employer] [facility], [facility], [place], [address], 9 17:25:04 Uroxatral 10 mg tablet,ext ended release 2018 019 INTERFACE [facility], [address] [place] [address], [place], [address], 9 14:52:07 Cipro 500 mg tablet [address] [facility], [address] [place], [address], 8 16:51:42 Flomax 0.4 mg capsule [address] [facility], [address] [place], [address], 8 16:51:46 Patient TargetsNo targets recorded. Patient Instructions Encounter Date Encounter Id Patient Instructions Last Modified By Organization Details Last Modified Time 01/09/2018 [id number] prostatitis: car e instructions [email or web address] Not available 01/09/2018 16:05:21 healthy together [email or web address] Not availab le 01/15/2018 19:20:34 02/12/2019 [id number] healthy together [email or web address] Not availa ble 02/12/2019 14:52:03 Reason for Referral None Reported. Results Created Date Observation Date Name Description Value Unit Range Abnormal Flag Note LastModifiedBy Organization Detail LastModifiedTime 10/08/19 20 10/08/2019 urina lysis , dipst ick, auto Unknown Analyte Yellow Not Available [address]ole Rodriguez, [place], [address], 10/08/2019 15:48:14 10/08/19 20 10/08/2019 urina lysis , dipst ick, auto Unknown Analyte Clear Not Available [address], [place], [address], 10/08/2019 15:48:14 10/08/19 20 10/08/2019 urina lysis , dipst ick, auto Unknown Analyte 1.020 Not Available [address], [place], [address], 10/08/2019 15:48:14 10/08/19 20 10/08/2019 urina lysis , dipst ick, auto Unknown Analyte 1.003 - 1.035 Not Available [place] [address], [place], [address], 10/08/2019 15:48:14 10/08/19 20 10/08/2019 urina lysis , dipst ick, auto Unknown Analyte 5.0 Not Available [facility] [place] [facility] [address]ole Rodriguez, [place], [address], 10/08/2019 15:48:14 10/08/19 20 10/08/2019 urina lysis , dipst ick, auto Unknown Analyte 5.0 - 8.0 Not Available Replaced by [facility] [place] With [address]ole Rodriguez, [place], [address], 10/08/2019 15:48:14 10/08/19 20 10/08/2019 urina lysis , dipst ick, auto Unknown Analyte Negati ve Not Available [facility] With [address]ole Rodriguez, [place], [address], 10/08/2019 15:48:14 10/08/19 20 10/08/2019 urina lysis , dipst ick, auto Unknown Analyte Negati ve Not Available [facility] With [address] Kole Rodriguez, [place], [address], 10/08/2019 15:48:14 10/08/19 20 10/08/2019 urina lysis , dipst ick, auto Unknown Analyte Negati ve Not Available Replaced by [facility] [place] With [address]ole Rodriguez, [place], [address], 10/08/2019 15:48:14 10/08/19 20 10/08/2019 urina lysis , dipst ick, auto Unknown Analyte Negati ve Not Available [facility] With [address]ole Rodriguez, [place], [address], 10/08/2019 15:48:14 10/08/19 20 10/08/2019 urina lysis , dipst ick, auto Unknown Analyte Negtiv e Not Available [facility] With [address], [place], [address], 10/08/2019 15:48:14 10/08/19 20 10/08/2019 urina lysis , dipst ick, auto Unknown Analyte Negati ve - Trace Not Available [facility] With [address], [place], [address], 10/08/2019 15:48:14 10/08/19 20 10/08/2019 urina lysis , dipst ick, auto Unknown Analyte Normal Not Available [facility] With [address], [place], [address], 10/08/2019 15:48:14 10/08/19 20 10/08/2019 urina lysis , dipst ick, auto Unknown Analyte Normal Not Available [facility] With [address], [place], [address], 10/08/2019 15:48:14 10/08/19 20 10/08/2019 urina lysis , dipst ick, auto Unknown Analyte Negati ve Not Available [facility] With [address], [place], [address], 10/08/2019 15:48:14 10/08/19 20 10/08/2019 urina lysis , dipst ick, auto Unknown Analyte Negati ve Not Available [facility] With [address], [place], [address], 10/08/2019 15:48:14 10/08/19 20 10/08/2019 urina lysis , dipst ick, auto Unknown Analyte Normal Not Available [facility] With [address], [place], [address], 10/08/2019 15:48:14 10/08/19 20 10/08/2019 urina lysis , dipst ick, auto Unknown Analyte Normal - 1mg/dl Not Available Replaced by [facility] [place] With [address] Sharif F, [place], [address], 10/08/2019 15:48:14 10/08/19 20 10/08/2019 urina lysis , dipst ick, auto Unknown Analyte Negati ve Not Available [facility] With [address], [place], [address], 10/08/2019 15:48:14 10/08/19 20 10/08/2019 urina lysis , dipst ick, auto Unknown Analyte Negati ve Not Available [facility] With [address] Kole Rodriguez, [place], [address], 10/08/2019 15:48:14 10/08/19 20 10/08/2019 urina lysis , dipst ick, auto Unknown Analyte Negati ve Not Available Replaced by [facility] [place] With [address] Sharif F, [place], [address], 10/08/2019 15:48:14 10/08/19 20 10/08/2019 urina lysis , dipst ick, auto Unknown Analyte Negati ve Not Available Replaced by [facility] [place] With [address], [place], [address], 10/08/2019 15:48:14 10/08/19 20 10/08/2019 urina lysis , dipst ick, auto Unknown Analyte Clean Catch Not Available [facility] With [address] Sharif F, [place], [address], 10/08/2019 15:48:14 10/08/19 20 10/08/2019 urina lysis , dipst ick, auto Unknown Analyte Automa edilberto Not Available Replaced by [facility] [place] With [address], [place], [address], 10/08/2019 15:48:14 04/02/20 19 04/02/2019 urina lysis , dipst ick, auto Unknown Analyte Yellow Not Available [facility] With [address], [place], [address], 04/02/2019 17:25:15 04/02/20 19 04/02/2019 urina lysis , dipst ick, auto Unknown Analyte Clear Not Available [facility] With [address], [place], [address], 04/02/2019 17:25:15 04/02/2004/02/2019 urina lysis , dipst ick, auto Unknown Analyte 1.020 Not Available [facility] With [address], [place], [address], 04/02/2019 17:25:15 04/02/2004/02/2019 urina lysis , dipst ick, auto Unknown Analyte 1.003 - 1.035 Not Available [facility] With [address], [place], [address], 04/02/2019 17:25:15 04/02/2004/02/2019 urina lysis , dipst ick, auto Unknown Analyte 5.0 Not Available [facility] With [address], [place], [address], 04/02/2019 17:25:15 04/02/2004/02/2019 urina lysis , dipst ick, auto Unknown Analyte 5.0 - 8.0 Not Available [facility] With [address], [place], [address], 04/02/2019 17:25:15 04/02/2004/02/2019 urina lysis , dipst ick, auto Unknown Analyte Negati ve Not Available Replaced by [facility] [place] With [address] Sharif F, [place], [address], 04/02/2019 17:25:15 04/02/20 19 04/02/2019 urina lysis , dipst ick, auto Unknown Analyte Negati ve Not Available Replaced by [facility] [place] With [address], [place], [address], 04/02/2019 17:25:15 04/02/20 19 04/02/2019 urina lysis , dipst ick, auto Unknown Analyte Negati ve Not Available [facility] With [address], [place], [address], 04/02/2019 17:25:15 04/02/2004/02/2019 urina lysis , dipst ick, auto Unknown Analyte Negati ve Not Available [facility] With [address], [place], [address], 04/02/2019 17:25:15 04/02/20 19 04/02/2019 urina lysis , dipst ick, auto Unknown Analyte Negtiv e Not Available [facility] With [address], [place], [address], 04/02/2019 17:25:15 04/02/2004/02/2019 urina lysis , dipst ick, auto Unknown Analyte Negati ve - Trace Not Available [facility] With [address], [place], [address], 04/02/2019 17:25:15 04/02/2004/02/2019 urina lysis , dipst ick, auto Unknown Analyte Normal Not Available [facility] With [address], [place], [address], 04/02/2019 17:25:15 04/02/20 19 04/02/2019 urina lysis , dipst ick, auto Unknown Analyte Normal Not Available [facility] With [address] Sharif F, [place], [address], 04/02/2019 17:25:15 04/02/20 19 04/02/2019 urina lysis , dipst ick, auto Unknown Analyte Negati ve Not Available [facility] With [address]ole Rodriguez, [place], [address], 04/02/2019 17:25:15 04/02/20 19 04/02/2019 urina lysis , dipst ick, auto Unknown Analyte Negati ve Not Available [facility] With [address] Rodriguez, [place], [address], 04/02/2019 17:25:15 04/02/20 19 04/02/2019 urina lysis , dipst ick, auto Unknown Analyte Normal Not Available [facility] With [address]ole Rodriguez, [place], [address], 04/02/2019 17:25:15 04/02/20 19 04/02/2019 urina lysis , dipst ick, auto Unknown Analyte Normal - 1mg/dl Not Available [facility] With [address], [place], [address], 04/02/2019 17:25:15 04/02/20 19 04/02/2019 urina lysis , dipst ick, auto Unknown Analyte Negati ve Not Available [facility] With [address], [place], [address], 04/02/2019 17:25:15 04/02/20 19 04/02/2019 urina lysis , dipst ick, auto Unknown Analyte Negati ve Not Available [facility] With [address], [place], [address], 04/02/2019 17:25:15 04/02/20 19 04/02/2019 urina lysis , dipst ick, auto Unknown Analyte Negati ve Not Available [facility] With [address], [place], [address], 04/02/2019 17:25:15 04/02/20 19 04/02/2019 urina lysis , dipst ick, auto Unknown Analyte Negati ve Not Available [facility] With [address], [place], [address], 04/02/2019 17:25:15 04/02/20 19 04/02/2019 urina lysis , dipst ick, auto Unknown Analyte Clean Catch Not Available [facility] With [address], [place], [address], 04/02/2019 17:25:15 04/02/20 19 04/02/2019 urina lysis , dipst ick, auto Unknown Analyte Automa edilberto Not Available [facility] With [address], [place], [address], 04/02/2019 17:25:15 02/13/20 19 02/12/2019 urina lysis , dipst ick, auto Unknown Analyte Yellow Not Available [facility] With [address], [place], [address], 02/12/2019 13:57:17 02/13/20 19 02/12/2019 urina lysis , dipst ick, auto Unknown Analyte Clear Not Available [facility] With [address], [place], [address], 02/12/2019 13:57:17 02/13/20 19 02/12/2019 urina lysis , dipst ick, auto Unknown Analyte 1.020 Not Available [facility] With [address], [place], [address], 02/12/2019 13:57:17 02/13/20 19 02/12/2019 urina lysis , dipst ick, auto Unknown Analyte 1.003 - 1.035 Not Available [facility] With [address], [place], [address], 02/12/2019 13:57:17 02/13/20 19 02/12/2019 urina lysis , dipst ick, auto Unknown Analyte 5.0 Not Available [facility] With [address], [place], [address], 02/12/2019 13:57:17 02/13/20 19 02/12/2019 urina lysis , dipst ick, auto Unknown Analyte 5.0 - 8.0 Not Available [facility] With [address], [place], [address], 02/12/2019 13:57:17 02/13/20 19 02/12/2019 urina lysis , dipst ick, auto Unknown Analyte Negati ve Not Available [facility] With [address], [place], [address], 02/12/2019 13:57:17 02/13/2002/12/2019 urina lysis , dipst ick, auto Unknown Analyte Negati ve Not Available [facility] With [address], [place], [address], 02/12/2019 13:57:17 02/13/2002/12/2019 urina lysis , dipst ick, auto Unknown Analyte Negati ve Not Available [facility] With [address], [place], [address], 02/12/2019 13:57:17 02/13/20 19 02/12/2019 urina lysis , dipst ick, auto Unknown Analyte Negati ve Not Available [facility] With [address] Sharif F, [place], [address], 02/12/2019 13:57:17 02/13/20 19 02/12/2019 urina lysis , dipst ick, auto Unknown Analyte Negtiv e Not Available [facility] With [address], [place], [address], 02/12/2019 13:57:17 02/13/20 19 02/12/2019 urina lysis , dipst ick, auto Unknown Analyte Negati ve - Trace Not Available [facility] With [address], [place], [address], 02/12/2019 13:57:17 02/13/20 19 02/12/2019 urina lysis , dipst ick, auto Unknown Analyte Normal Not Available [facility] With [address], [place], [address], 02/12/2019 13:57:17 02/13/20 19 02/12/2019 urina lysis , dipst ick, auto Unknown Analyte Normal Not Available [facility] With [address], [place], [address], 02/12/2019 13:57:17 02/13/20 19 02/12/2019 urina lysis , dipst ick, auto Unknown Analyte Negati ve Not Available [facility] With [address], [place], [address], 02/12/2019 13:57:17 02/13/20 19 02/12/2019 urina lysis , dipst ick, auto Unknown Analyte Negati ve Not Available [facility] With [facility] [address], [place], [address], 02/12/2019 13:57:17 02/13/20 19 02/12/2019 urina lysis , dipst ick, auto Unknown Analyte Normal Not Available [facility] [place] With [facility] [address], [place], [address], 02/12/2019 13:57:17 02/13/20 19 02/12/2019 urina lysis , dipst ick, auto Unknown Analyte Normal - 1mg/dl Not Available [facility] With [facility] [address], [place], [address], 02/12/2019 13:57:17 02/13/20 19 02/12/2019 urina lysis , dipst ick, auto Unknown Analyte Negati ve Not Available [facility] With [facility] [address], [place], [address], 02/12/2019 13:57:17 02/13/20 19 02/12/2019 urina lysis , dipst ick, auto Unknown Analyte Negati ve Not Available [facility] With [facility] [address], [place], [address], 02/12/2019 13:57:17 02/13/20 19 02/12/2019 urina lysis , dipst ick, auto Unknown Analyte Negati ve Not Available [facility] With [facility] [address], [place], [address], 02/12/2019 13:57:17 02/13/2002/12/2019 urina lysis , dipst ick, auto Unknown Analyte Negati ve Not Available [facility] [place] With [facility] [address], [place], [address], 02/12/2019 13:57:17 02/13/20 19 02/12/2019 urina lysis , dipst ick, auto Unknown Analyte Clean Catch Not Available [facility] With [address], [place], [address], 02/12/2019 13:57:17 02/13/20 19 02/12/2019 urina lysis , dipst ick, auto Unknown Analyte Automa edilberto Not Available [facility] With [address], [place], [address], 02/12/2019 13:57:17 02/14/20 18 02/13/2018 urina lysis , dipst ick, auto Unknown Analyte Yellow Not Available [facility] With [address], [place], [address], 02/13/2018 16:52:45 02/14/20 18 02/13/2018 urina lysis , dipst ick, auto Unknown Analyte Clear Not Available [facility] With [address], [place], [address], 02/13/2018 16:52:45 02/14/20 18 02/13/2018 urina lysis , dipst ick, auto Unknown Analyte 1.025 Not Available [facility] With [address], [place], [address], 02/13/2018 16:52:45 02/14/20 18 02/13/2018 urina lysis , dipst ick, auto Unknown Analyte 5.0 Not Available [facility] With [address], [place], [address], 02/13/2018 16:52:45 02/14/20 18 02/13/2018 urina lysis , dipst ick, auto Unknown Analyte Negati ve Not Available [facility] With [place] [address], [place], [address], 02/13/2018 16:52:45 02/14/20 18 02/13/2018 urina lysis , dipst ick, auto Unknown Analyte Negati ve Not Available [facility] With [address], [place], [address], 02/13/2018 16:52:45 02/14/20 18 02/13/2018 urina lysis , dipst ick, auto Unknown Analyte Negtiv e Not Available [facility] With [address], [place], [address], 02/13/2018 16:52:45 02/14/20 18 02/13/2018 urina lysis , dipst ick, auto Unknown Analyte Normal Not Available [facility] With [address], [place], [address], 02/13/2018 16:52:45 02/14/20 18 02/13/2018 urina lysis , dipst ick, auto Unknown Analyte Negati ve Not Available [facility] With [place] [address], [place], [address], 02/13/2018 16:52:45 02/14/20 18 02/13/2018 urina lysis , dipst ick, auto Unknown Analyte Normal Not Available [facility] With [address], [place], [address], 02/13/2018 16:52:45 02/14/20 18 02/13/2018 urina lysis , dipst ick, auto Unknown Analyte Negati ve Not Available [facility] With [address], [place], [address], 02/13/2018 16:52:45 02/14/20 18 02/13/2018 urina lysis , dipst ick, auto Unknown Analyte Negati ve Not Available [facility] With [address], [place], [address], 02/13/2018 16:52:45 02/14/20 18 02/13/2018 urina lysis , dipst ick, auto Unknown Analyte Clean Catch Not Available [facility] With [address], [place], [address], 02/13/2018 16:52:45 02/14/20 18 02/13/2018 urina lysis , dipst ick, auto Unknown Analyte Automa edilberto Not Available [facility] With [address], [place], [address], 02/13/2018 16:52:45 01/10/20 18 01/09/2018 urina lysis , dipst ick, auto Unknown Analyte Yellow Not Available [facility] With [address], [place], [address], 01/09/2018 16:11:32 01/10/20 18 01/09/2018 urina lysis , dipst ick, auto Unknown Analyte Clear Not Available [facility] With [address], [place], [address], 01/09/2018 16:11:32 01/10/20 18 01/09/2018 urina lysis , dipst ick, auto Unknown Analyte 1.020 Not Available [facility] With [address], [place], [address], 01/09/2018 16:11:32 01/10/20 18 01/09/2018 urina lysis , dipst ick, auto Unknown Analyte 5.0 Not Available [facility] With [address], [place], [address], 01/09/2018 16:11:32 01/10/20 18 01/09/2018 urina lysis , dipst ick, auto Unknown Analyte Negati ve Not Available [facility] With [address], [place], [address], 01/09/2018 16:11:32 01/10/20 18 01/09/2018 urina lysis , dipst ick, auto Unknown Analyte Negati ve Not Available [facility] With [address], [place], [address], 01/09/2018 16:11:32 01/10/20 18 01/09/2018 urina lysis , dipst ick, auto Unknown Analyte Negtiv e Not Available [facility] With [address] F, [place], [address], 01/09/2018 16:11:32 01/10/20 18 01/09/2018 urina lysis , dipst ick, auto Unknown Analyte Normal Not Available [facility] With [address], [place], [address], 01/09/2018 16:11:32 01/10/20 18 01/09/2018 urina lysis , dipst ick, auto Unknown Analyte Negati ve Not Available [facility] With [address], [place], [address], 01/09/2018 16:11:32 01/10/20 18 01/09/2018 urina lysis , dipst ick, auto Unknown Analyte Normal Not Available [facility] With [address], [place], [address], 01/09/2018 16:11:32 01/10/20 18 01/09/2018 urina lysis , dipst ick, auto Unknown Analyte Negati ve Not Available [facility] With [address], [place], [address], 01/09/2018 16:11:32 01/10/20 18 01/09/2018 urina lysis , dipst ick, auto Unknown Analyte Negati ve Not Available [facility] With [address] Rodriguez, [place], [address], 01/09/2018 16:11:32 01/10/20 18 01/09/2018 urina lysis , dipst ick, auto Unknown Analyte Clean Catch Not Available [facility] With [address], [place], [address], 01/09/2018 16:11:32 01/10/20 18 01/09/2018 urina lysis , dipst ick, auto Unknown Analyte Automa edilberto Not Available [facility] With [address] Kole Rodriguez, [place], [address], 01/09/2018 16:11:32 Result Notes None recorded. Problems Name Problem SNOMED Code Status Onset Date Resolution Date Notes Provider Name and Address Organization Details Recorded Time Cyst of epididymi s 48536513 Active 2015 From Automated Load;Prov ider: Ajit, Jerad;[facility]: Active Not Available [facility] 6 05:12:31 Epididymi tis 70814302 Active 2015 From Automated Load;Prov ider: Ajit, Jerad;[facility]: Active Not Available [facility] 6 05:12:31 Lower urinary tract symptoms due to benign prostatic hypertrop 56481455200 101 Active 2015 From Automated Load;Prov ider: Ajit, Jerad;[facility]: Active Not Available [facility] 6 05:12:31 Problem Notes None recorded. Medical Equipment None Reported. Allergies Allergen ID Allergen Name Allergen Category Reaction Reaction Severity Criticality Documentation Date Start Date Code Code System Note Provider Name and Address Organization Details Recorded Time 310142 Demerol medicatio n Not available Not available Not available 01/09/2018 68866 1 RxNorm Deseriee Aubrey [facility] 8 16:09:19 Medications Name Sig Start Date [...] Updated DateTime 10/08/2019 172.72 cm 28.1 kg/m2 54246.59 g 138/79 mm[Hg] Murelene Irvin [facility] 10/08/2019 15:44:30 Date Recorded Body height Body mass index (BMI) Body weight Systolic And Diastolic Provider Name and Address Organization Details Last Updated DateTime 01/09/2018 172.72 cm 28.1 kg/m2 80162.59 g 141/82 mm[Hg] Deseriee Bendena [facility] 01/09/2018 16:09:09 Date Recorded Body height Body mass index (BMI) Body weight Provider Name and Address Organization Details Last Updated DateTime 02/12/2019 172.72 cm 28.1 kg/m2 77939.59 g [facility] 02/12/2019 13:57:01 Date Recorded Body height Body mass index (BMI) Body weight Systolic And Diastolic Provider Name and Address Organization Details Last Updated DateTime 02/13/2018 172.72 cm 12.9 kg/m2 31804.35 g 138/80 mm[Hg] Sebastian Bryan [facility] 02/13/2018 16:51:32 Date Recorded Body height Body mass index (BMI) Body weight Provider Name and Address Organization Details Last Updated DateTime 04/02/2019 172.72 cm 28.1 kg/m2 [address] [facility] 04/02/2019 17:24:11 Social History Question Answer Notes LastModified by Organizat ion Details LastModified Time Tobacco Smoking Status Never Smoker [facility] 01/09/2018 16:09:38 How Much Tobacco Do You Chew? None [email or web address] Information not available 10/08/2019 Marital Status [email or web address] Informatio n not available 01/09/2018 What Was [...] Unspecified Relation Family history of malignant neoplasm [email or web address] Not available 2017 16:09:32 Medical History Condition Response Glaucoma Y Arthritis Y False Teeth Y Chronic Obstructive Pulmonary Disease Y Past Encounters Encounter ID Performer Location Encounter Start Date Encounter Closed Date Diagnosis/Indication Diagnosis SNOMED-CT Code Diagnosis ICD10 Code Diagnosis IMO Codes Diagnosis Note [id number] MD [facility] [address] [place] [address],[place] [address] 01/09/2018 15:03:52 01/16/2018 10:10:20 Prostatitis 0433998 N41.9 [id number] JERAD PARHAM MD [facility] [address],[place] [address] 02/13/2018 15:41:08 02/24/2018 09:14:08 Benign prostatic hyperplasia with outflow obstruction 834732799 N40.1 Inguinal pain 067675831 R10.2 [id number] JERAD PARHAM MD [facility] [address],[place] [address] 02/12/2019 13:32:55 02/26/2019 11:33:43 Benign prostatic hyperplasia with outflow obstruction 884977639 N40.1 [id number] JERAD PARHAM MD [facility] [address],[place] [address] 04/02/2019 13:51:48 04/13/2019 08:20:41 Benign prostatic hyperplasia with outflow obstruction 671461575 N40.1 [id number] JERAD PARHAM MD [facility] [address],[place] [address] 10/08/2019 13:02:06 10/08/2019 13:33:59 Benign prostatic hyperplasia with outflow obstruction [id number] N40.1 Health Concerns Section Related Observation LastModified by Organization Detai ls LastModified Time None Recorded Concern Status LastModified by Organization Details LastModified Time None Recorded Advance Directives Directive None Recorded Payers Insurance Date Sequence Insurance Name Policy Number Policy Malik Covered Member ID Malik Member ID Guarantor Name 03/28/2020 2 27 [place] (MEDICARE SUPPLEMENT) Erik Rey [id number] Erik Rey 03/28/2020 1 [place] Erik Rey [id number] Erik Rey Notes Date Note Type Note [...] right epididymitis and BPH. JERAD PARHAM MD [address] [place] [address], [phone], [facility] 01/15/2018 19:21:32 02/13/2018 text/html 72-year-old male in the office for follow-up evaluation of irritative voiding symptoms. He continues to have right groin pain also. No current hesitancy, urgency, hematuria, dysuria. JERAD PARHAM MD [address] [place] [address], [phone] 02/23/2018 15:50:22 02/12/2019 text/html 73-year-old male in the office for follow-up evaluation of lower urinary tract symptoms. He voids every 2 hours with nocturia 3 times nightly. He denies hematuria or dysuria. He denies urgency. He does have occasional hesitancy. He continues to have right groin pain. JERAD PARHAM MD [address] [place] [address], [phone] 02/26/2019 10:54:58 04/02/2019 text/html 73-year-old male in the office for follow-up evaluation of benign prostatic hyperplasia with lower urinary tract symptoms. He was initiated on Uroxatral. Symptoms are improved. He voids every 2 hours with nocturia every 3 hours. He denies hematuria or dysuria. He complains of right groin pain. JERAD PARHAM MD [address] [place] [address], [phone], [facility] 04/12/2019 15:44:45 10/08/2019 text/html 74-year-old male in the office for follow-up evaluation of benign prostatic hyperplasia with lower urinary symptoms. He continues on Uroxatral. He voids every 2-3 hours with nocturia 2-3 times nightly. He denies hesitancy. No hematuria or dysuria. He continues to have right groin pain intermittently. JERAD PARHAM MD [address] [place] [address], [phone], [facility] 10/11/2019 22:00:28
[2025-08-18] MEDS: ALBUTEROL 0.083% 2.5 MG/3 ML NEB IH (10:08)
--- NOTE | 2025-08-18 10:42 | PC.NURSE ---
Pre and Post Spirometry completed without incident. Albuterol 0.083% given via HHN, per written protocol, Pt tolerated tx well. 6 Minute Walk completed on room air, no complaints.
== END 2025-08-18 23:59 | disposition home or self-care (01) ==
LOC: RT 09:39
PROVIDERS: PCP Family Medicine; Visit Provider Internal Medicine Pulmonary Disease
DX: J44.9 Chronic obstructive pulmonary disease, unspecified (principal); R94.2 Abnormal results of pulmonary function studies
CPT/HCPCS: 94010; 94618

== ENCOUNTER 2025-09-09 10:10 | Day surgery (SDC) | payer MEDICARE, SELFPAY ==
--- NOTE | 2025-09-07 07:51 | EXP.HP ---
History of Present Illness *Admission Date: 09/09/25 *History of present illness: Mr. Rey is an 80-year-old gentleman who is here for diagnostic colonoscopy. The patient has had marked unintentional weight loss and does have a personal history of colon cancer. The examination is deemed medically necessary for diagnostic colonoscopy. The patient has been seen, interviewed and examined prior to the procedure by both myself and the anesthesia provider. [facility] Disclaimer: The information contained in this section may have been updated after the patient was seen, as this information can be updated by other users. Medical History (Updated 09/08/25 @ 12:24 by Jordan Mckeon) History of colon cancer in adulthood Poor sleep Fatigue Mediastinal lymphadenopathy Pleural effusion, bilateral History of COPD History of smoking 30 or more pack years Dyspnea on exertion CKD (chronic kidney disease) Atypical angina Dyspnea COPD (chronic obstructive pulmonary disease) Atrial fibrillation Surgical History History of dental surgery History of cataract surgery Family History Other COPD (chronic obstructive pulmonary disease) Cancer Heart attack Hypertension Social History (Updated 09/09/25 @ 11:10 by Yo Edwards CRNA) Smoking Status: Former smoker smoking status stop date: 1998 alcohol intake: never substance use type: denies use current occupational status: other Travel in the last 8 weeks?: None caffeine: No Have you lived/traveled outside US in past 30 days?: No Contact w/someone who lives/traveled outside US past 30 days?: No Exposure to someone with infectious disease in past 14 days?: No Do you have a fever (greater than 100.4 F or 38 C)?: No Have you tested positive for COVID-19?: No Exposed to someone with COVID-19 in past 14 days?: No Do you have a sore throat?: No Do you have a cough?: No Do you have any weakness?: No Do you have any diarrhea?: No Are you experiencing any unusual bleeding?: No Do you have any muscle aches/pain?: No Do you have any abdominal pain?: No Are you experiencing loss of taste or smell?: No Other Medical History Have you received the Pneumonia Vaccine: Yes Review of Systems Review of Systems Review of systems (narrative): Negative *Cardiovascular Comments: Negative *Gastrointestinal Comments: Negative *Genitourinary Comments: Negative *Musculoskeletal Comments: Negative *Neurologic Comments: Negative Meds Home Medications and Allergies Home Medications ?Medication ?Instructions ?Recorded ?Confirmed ?Type fluticasone fur. 100 mcg-umeclid 1 inh inhalation DAILY #60 ea 05/06/24 09/09/25 Rx 62.5 mcg-vilant 25 mcg inhalat.powder (Trelegy Ellipta) ipratropium 0.5 mg-albuterol 3 mg 3 ml inhalation Q4H PRN wheezing 05/06/24 09/09/25 Rx (2.5 mg base)/3 mL nebulization #90 mL soln alfuzosin 10 mg tablet,extended 10 mg PO DAILY 05/07/24 09/01/25 History release 24 hr dorzolamide-timolol (PF) 2 %-0.5 % 1 drp ophthalmic (eye) BID 05/07/24 09/09/25 History eye drops in a dropperette latanoprost 0.005 % eye drops 1 drp ophthalmic (eye) HS 05/07/24 09/09/25 History levothyroxine 125 mcg capsule 125 mcg PO DAILY 05/07/24 09/09/25 History testosterone cypionate 200 mg/mL 200 mg IM MONTHLY 05/11/24 09/09/25 History intramuscular oil hydrochlorothiazide 12.5 mg tablet 12.5 mg PO DAILY #30 tabs 08/13/24 09/09/25 Rx metoprolol succinate 50 mg 50 mg PO DAILY #30 tabs 08/13/24 09/09/25 Rx tablet,extended release 24 hr (Toprol XL) dorzolamide 22.3 mg-timolol 6.8 1 drp Eye-Both BID 11/25/24 09/09/25 History mg/mL eye drops spironolactone 25 mg tablet 12.5 mg (1/2 x 25 mg) PO DAILY #30 03/30/25 09/09/25 Rx (Aldactone) tabs fluticasone propionate 50 2 spray intranasal DAILY 90 days 04/29/25 09/09/25 Rx mcg/actuation nasal #16 grams spray,suspension (Flonase Allergy Relief) dapagliflozin propanediol 10 mg 10 mg PO DAILY #30 tabs 05/06/25 09/09/25 Rx tablet (Farxiga) albuterol sulfate 90 mcg/actuation 2 inh inhalation Q4H PRN shortness 05/20/25 09/01/25 Rx aerosol inhaler of breath or wheezing #8.5 grams apixaban 2.5 mg tablet (Eliquis) 2.5 mg PO BID #60 tabs 07/29/25 09/09/25 Rx budesonide 0.25 mg/2 mL suspension See Rx Instructions .Route 07/29/25 09/09/25 Rx for nebulization .COMPLEX #120 mL colchicine 0.6 mg tablet 0.6 mg PO Q6H PRN gout pain 08/26/25 09/09/25 History febuxostat 40 mg tablet 40 mg PO DAILY 08/26/25 09/09/25 History furosemide 20 mg tablet 20 mg PO DAILY 08/26/25 09/09/25 History trazodone 50 mg tablet 50 - 150 mg PO QPM 08/26/25 09/09/25 History sodium,potassium,mag sulfates 17.5 See Rx Instructions PO .COMPLEX 08/30/25 09/01/25 Rx gram-3.13 gram-1.6 gram oral soln #354 mL (Suprep Bowel Prep Kit) New Prescriptions to Start Prescriptions: Allergies Allergy/AdvReac Type Severity Reaction Status Date / Time meperidine (From Demerol) Allergy Other Verified 09/08/25 12:25 Exam *Routine HEENT Exam Head: Present normocephalic Eye: Present EOMI and PERRL ENT: Present mucous membranes moist *Routine Neck Exam Neck: Present supple *Routine Respiratory Exam Respiratory: Present CTA bilaterally *Routine Cardiovascular Exam Cardiovascular: Present RRR *Routine Abdominal Exam Abdominal: Present soft and normoactive bowel sounds; Absent tenderness *Routine Rectal Exam Rectal:: deferred *Routine Genitalia Exam Genitalia:: deferred *Routine Extremities Exam Extremities: Absent cyanosis, clubbing or edema *Routine Skin Exam Skin: Present warm; Absent rash *Routine Neurological Exam Neurological: Present alert and oriented X3 Assessment and Plan *Assessment and plan (1) Personal history of colon cancer: Status: Acute Category: Medical Code(s): Z85.038 - Personal history of other malignant neoplasm of large intestine (2) Diarrhea: Status: Acute Category: Medical Code(s): R19.7 - Diarrhea, unspecified (3) Abnormal weight loss: Status: Acute Category: Medical Code(s): R63.4 - Abnormal weight loss Plan A/P: 1. Personal history of colon cancer with abnormal weight loss and diarrhea is the preprocedural diagnosis. The patient will be anesthetized/sedated using MAC sedation. The patient has been seen and examined. Cardiac and lung assessment prior to the examination is stable. Proceed with planned diagnostic colonoscopy.
[2025-09-08 12:29] VITALS: BMI 26.9
--- NOTE | 2025-09-09 06:53 | HMH.PROCNOTE ---
[facility] Procedure Note Date: 09/09/25 Time: 11:36 Procedure Note:: Colonoscopy Procedure Report: Colonoscopy with cold snare polypectomy Endoscopist: Xu Vázquez II, MD Referring physician: Gennaro Salamanca MD Date of Procedure: September 09, 2025 Equipment: Olympus [id number] adult colonoscope Sedation: MAC sedation Indication: Mr. Rey is an 80-year-old gentleman who is here for diagnostic colonoscopy. The patient has had unintentional weight loss. He was at 189 pounds and now is at 171 pounds. He does have a personal history of colon cancer found in 2001 and underwent right hemicolectomy at the [facility]. The patient's last colonoscopy was more than a decade ago. The patient does have some constipation. He did see a spot of blood a couple of weeks ago. He does get some gas and bloating with abdominal discomfort if he drinks dairy. The examination is deemed medically necessary for diagnostic colonoscopy. Procedure: Prior to the procedure, a history and physical exam was performed, and patient's medications and allergies were reviewed. The risks, benefits and alternatives of the sedation and procedure were discussed with the patient. All questions were answered and informed consent was obtained. The patient was brought to the procedure room. Patient identification and proposed procedure were verified by the physician and the nurse. The patient was placed in a left lateral decubitus position and the scope was passed under direct vision. Throughout the procedure, the patient's blood pressure, pulse, and oxygen saturations were monitored continuously. The colonoscopy was accomplished without difficulty. The patient tolerated the procedure well. Findings: On digital rectal examination there was normal rectal tone. There were no external hemorrhoids. The prostate was 2+, mildly firm but symmetric without nodules. The colonoscope was introduced through the anal canal to the rectum and advanced to the ileocolonic anastomosis. The scope was advanced a short distance into the terminal ileum which appeared grossly normal. The scope was then withdrawn into the colon. This was a [id number] ileocolonic anastomosis. There were 3 diminutive polyps (descending x 2 (4 and 5 mm) and rectum x 1 (3 mm)). These were all removed via cold snare polypectomy. The remaining transverse, descending, sigmoid and rectum were grossly normal. There were no other mucosal abnormalities identified. Upon retroflexion within the rectum there were grade 2 internal hemorrhoids. The preparation was excellent throughout with Sonoma Preparation Score of 9. Impression: 1. Diminutive colonic polyps x 3 Plan: I will follow-up the polyp histology. The patient will not require further preventative surveillance. I would encourage a fiber bowel regimen on a long-term daily maintenance basis.
[2025-09-09 10:48] VITALS: BP 146/90; PULSE 63; RESP 18; TEMP 36.6; O2SAT 99
[2025-09-09] MEDS: LACTATED RINGERS 1000ML 1,000 ML 50 ML IV (10:53)
--- NOTE | 2025-09-09 11:09 | P.PNANES_ITS ---
[facility] Disclaimer: The information contained in this section may have been updated after the patient was seen, as this information can be updated by other users. Medical History (Updated 09/08/25 @ 12:24 by Jordan Mckeon) History of colon cancer in adulthood Poor sleep Fatigue Mediastinal lymphadenopathy Pleural effusion, bilateral History of COPD History of smoking 30 or more pack years Dyspnea on exertion CKD (chronic kidney disease) Atypical angina Dyspnea COPD (chronic obstructive pulmonary disease) Atrial fibrillation Surgical History History of dental surgery History of cataract surgery Family History Other COPD (chronic obstructive pulmonary disease) Cancer Heart attack Hypertension Social History Smoking Status: Former smoker smoking status stop date: 1998 alcohol intake: never substance use type: denies use current occupational status: other Travel in the last 8 weeks?: None caffeine: No [facility] Anesthesia Checklist Patient Identification Patient Identification: Arm Band and Verbal (Name & ) Structural Data Admitted From: Home Planned Operative Procedure/s: Colonoscopy Consent for Planned Operative Procedure(s) Verified: Yes Verified Documents: Surgical Consent NPO Status Verified Time NPO: 00:00 Chart Verification Results Verified: CBC, BMP and ECG Additional verifications Anesthesia Reactions: No Hx Blood Transfusions: No Airway Assessment Mallampati Score:: Class II C-Spine Mobility Assessed: Yes TMJ Mobility Assessed: Yes Dentition: Edentulous Neurological Assessment Level of Consciousness: Awake, Alert and Appropriate Hx Seizures: No Numbness or tingling in extremities: No Anesthesia Plan Anesthesia Risk discussed: Yes Anesthesia Plan: Verified ASA Class: II Anesthesia Type: MAC
[2025-09-09 11:36] VITALS: BP 115/53; PULSE 63; RESP 18; TEMP 36.3; O2SAT 96
[2025-09-09 11:46] VITALS: BP 128/80; PULSE 62; RESP 18; TEMP 36.3; O2SAT 96
[2025-09-09 12:06] VITALS: BP 136/78; PULSE 64; RESP 18; TEMP 36.3; O2SAT 96
[2025-09-09 13:24] VITALS: BP 136/78; PULSE 64; RESP 18; TEMP 36.3; O2SAT 96
== END 2025-09-09 12:06 | disposition home or self-care (01) ==
PROVIDERS: PCP Family Medicine; Visit Provider Internal Medicine Gastroenterology
PROC: 0DJD8ZZ Inspection of Lower Intestinal Tract, Via Natural or Artificial Opening Endoscopic (ICD-10-PCS; CPT 45378; principal; 2025-09-09 12:00)
DX: K63.5 Polyp of colon (principal); R63.4 Abnormal weight loss; R19.7 Diarrhea, unspecified; Z85.038 Personal history of other malignant neoplasm of large intestine; Z87.891 Personal history of nicotine dependence; Z68.26 Body mass index [BMI] 26.0-26.9, adult
CPT/HCPCS: 45385; 88305; J2003; J2704; J7120